=== PATIENT | female | born 1970 | race Hispanic/Latino ===

== ENCOUNTER 2018-01-15 09:42 | Inpatient (IN) | payer OTHER ==
[2018-01-15 10:41] LABS: Basophils % (Auto) 0.7 % (0.0-1.8); Eosinophils # (Auto) 0.3 K/mm3 (0.0-0.4); Eosinophils % (Auto) 4.9 % (0.0-4.3); Hematocrit 45.5 % (30.3-42.9); Hemoglobin 15.3 gm/dl (10.1-14.3); Lymphocytes # (Auto) 1.7 K/mm3 (1.2-5.4); Lymphocytes % (Auto) 27.8 % (13.4-35.0); Mean Corpuscular HGB Conc 34 % (30-34); Mean Corpuscular Hemoglobin 30 pg (28-32); Mean Corpuscular Volume 88 fl (79-97); Monocytes # (Auto) 0.7 K/mm3 (0.0-0.8); Monocytes % (Auto) 10.8 % (0.0-7.3); Platelet Count 268 K/mm3 (140-440); Red Blood Count 5.15 M/mm3 (3.65-5.03); Red Cell Distribution Width 18.2 % (13.2-15.2)
[2018-01-15 11:02] LABS: BUN/Creatinine Ratio 18; Blood Urea Nitrogen 9 mg/dL (7-17); Calcium 9.2 mg/dL (8.4-10.2); Hemolysis Index 7
[2018-01-15 11:04] LABS: Bacteria,Urine 1+ /HPF (Negative); Bilirubin,Urine NEG (Negative); Blood,Urine NEG (Negative); Color,Urine Straw (Yellow); Protein,Urine <15 mg/dL mg/dL (Negative); Urobilinogen,Urine < 2.0 mg/dL (<2.0); WBC,Urine < 1.0 /HPF (0.0-6.0)
[2018-01-15 11:14] LABS: Amphetamine Screen,Urine PRESUMPTIVE NEGATIVE; Benzodiazepines Screen,Urine PRESUMPTIVE NEGATIVE; Cannabinoid Screen,Urine PRESUMPTIVE NEGATIVE; Cocaine Screen,Urine PRESUMPTIVE NEGATIVE; Methadone Screen,Urine PRESUMPTIVE NEGATIVE; Opiate Screen,Urine PRESUMPTIVE NEGATIVE
--- NOTE | 2018-01-15 11:22 | Emergency Department Report ---
ED Psych HPI - General Chief Complaint: Alcohol Stated Complaint: DETOX Time Seen by Provider: 01/15/18 11:19 Source: patient Mode of arrival: Wheelchair - History of Present Illness Initial Comments: 47-year-old female brought in by her ex- for the detox. Patient states that she would like to be admitted to a detox program. She has been drinking heavily for 4 days. She consumes at least a 12 pack of beer and a fifth of liquor daily. She has been persistently drinking up to the point when her brought her to the hospital. The states that he has been at work for "3-4 days". 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 She states that she knows she had a grand mal seizure days ago. She did not hit her head or injure herself. She did not bite her tongue. She states that she has been previously on Dilantin. The patient had been admitted to the [facility] for detox and signed out AMA approximately one week ago. She has no specific complaints at this time. Initially the nurse requested that we execute a 1013. This was done on a temporary basis to prevent the patient leaving with an alcohol level of nearly 350. However upon speaking to the patient she is cooperative and voluntary for detox. The 1013 will be rescinded upon sobriety. Complaint: other (alcohol dependency) Associated Psychiatric Symptoms: none History of same: Yes Quality: constant Improves With: none Context: recent alcohol abuse Associated Symptoms: denies other symptoms Treatments Prior to Arrival: none If Self Harm: other (incapacitated by alcohol abuse) - Related Data Home Medications Medication Instructions Recorded Confirmed Last Taken No Known Home Medications [No 01/15/18 01/15/18 Unknown Reported Home Medications] Allergies Allergy/AdvReac Type Severity Reaction Status Date / Time Sulfa (Sulfonamide Allergy Rash Verified 01/15/18 11:52 Antibiotics) ED Review of Systems ROS: Stated complaint: DETOX Other details as noted in HPI Constitutional: denies: chills, fever Eyes: denies: eye pain, eye discharge, vision change ENT: denies: ear pain, throat pain Respiratory: denies: cough, shortness of breath, wheezing Cardiovascular: denies: chest pain, palpitations Endocrine: no symptoms reported Gastrointestinal: denies: abdominal pain, nausea, diarrhea Genitourinary: denies: urgency, dysuria, discharge Musculoskeletal: denies: back pain, joint swelling, arthralgia Skin: denies: rash, lesions Neurological: other (states a seizure 4 days ago). denies: headache, weakness, paresthesias Psychiatric: denies: anxiety, depression Hematological/Lymphatic: denies: easy bleeding, easy bruising ED Past Medical Hx - Past Medical History Hx Seizures: Yes - Surgical History Past Surgical History?: No - Social History Smoking Status: Current Every Day Smoker Substance Use Type: Alcohol - Medications Home Medications: Home Medications Medication Instructions Recorded Confirmed Last Taken Type No Known Home Medications [No 01/15/18 01/15/18 Unknown History Reported Home Medications] ED Physical Exam - General Limitations: No Limitations General appearance: alert, in no apparent distress - Head Head exam: Present: atraumatic, normocephalic - Eye Eye exam: Present: normal appearance. Absent: scleral icterus - ENT ENT exam: Present: mucous membranes moist - Neck Neck exam: Present: normal inspection. Absent: tenderness, meningismus - Respiratory Respiratory exam: Present: normal lung sounds bilaterally. Absent: respiratory distress - Cardiovascular Cardiovascular Exam: Present: regular rate, normal rhythm. Absent: systolic murmur, diastolic murmur, rubs, gallop - GI/Abdominal GI/Abdominal exam: Present: soft, normal bowel sounds. Absent: distended, tenderness, guarding, rebound, rigid - Extremities Exam Extremities exam: Present: normal inspection - Back Exam Back exam: Present: normal inspection - Neurological Exam Neurological exam: Present: alert, oriented X3, CN II-XII intact. Absent: motor sensory deficit - Psychiatric Psychiatric exam: Present: normal mood, flat affect - Skin Skin exam: Present: warm, dry, intact, normal color. Absent: rash ED Course Vital Signs 01/15/18 09:54 Temperature 98.1 F Pulse Rate 84 Blood Pressure 122/81 O2 Sat by Pulse 95 Oximetry - Reevaluation(s) Reevaluation #1: Patient was cooperative with me. She was seen by mental health counselor. She was also found not to have any 1013 criteria. Her 1013 is rescinded. She is admitted on a voluntary basis to the medical stabilization unit in stable condition by Dr. Garay. 01/15/18 15:23 01/15/18 15:24 ED Medical Decision Making - Lab Data Result diagrams: 01/15/18 10:27 01/15/18 10:27 Laboratory Results - last 24 hr 01/15/18 01/15/18 01/15/18 10:27 10:27 10:27 WBC RBC Hgb Hct MCV MCH MCHC RDW Plt Count Lymph % (Auto) [place] % (Auto) Eos % (Auto) Baso % (Auto) Lymph # [place] # Eos # Baso # Seg Neutrophils % Seg Neutrophils # Sodium 138 Potassium 3.9 Chloride 90.5 L Carbon Dioxide 23 Anion Gap 28 BUN 9 Creatinine 0.5 L Estimated GFR > 60 BUN/Creatinine Ratio 18 Glucose 93 Calcium 9.2 Urine Color Urine Turbidity Urine pH Ur Specific [place] Urine Protein Urine Glucose (UA) Urine Ketones Urine Blood Urine Nitrite Urine Bilirubin Urine Urobilinogen Ur Leukocyte Esterase Urine WBC (Auto) Urine RBC (Auto) U Epithel Cells (Auto) Urine Bacteria (Auto) Salicylates < 0.3 L Urine Opiates Screen Urine Methadone Screen Acetaminophen < 5.0 L Ur Barbiturates Screen Ur Phencyclidine Scrn Ur Amphetamines Screen U Benzodiazepines Scrn Urine Cocaine Screen U Marijuana (THC) Screen Drugs of Abuse Note Plasma/Serum Alcohol 01/15/18 01/15/18 01/15/18 10:27 10:27 10:39 WBC 6.2 RBC 5.15 H Hgb 15.3 H Hct 45.5 H MCV 88 MCH 30 MCHC 34 RDW 18.2 H Plt Count 268 Lymph % (Auto) 27.8 [place] % (Auto) 10.8 H Eos % (Auto) 4.9 H Baso % (Auto) 0.7 Lymph # 1.7 [place] # 0.7 Eos # 0.3 Baso # 0.0 Seg Neutrophils % 55.8 Seg Neutrophils # 3.5 Sodium Potassium Chloride Carbon Dioxide Anion Gap BUN Creatinine Estimated GFR BUN/Creatinine Ratio Glucose Calcium Urine Color Straw Urine Turbidity Clear Urine pH 6.0 Ur Specific [place] 1.004 Urine Protein <15 mg/dl Urine Glucose (UA) Neg Urine Ketones Neg Urine Blood Neg Urine Nitrite Neg Urine Bilirubin Neg Urine Urobilinogen < 2.0 Ur Leukocyte Esterase Neg Urine WBC (Auto) < 1.0 Urine RBC (Auto) 1.0 U Epithel Cells (Auto) 1.0 Urine Bacteria (Auto) 1+ Salicylates Urine Opiates Screen Urine Methadone Screen Acetaminophen Ur Barbiturates Screen Ur Phencyclidine Scrn Ur Amphetamines Screen U Benzodiazepines Scrn Urine Cocaine Screen U Marijuana (THC) Screen Drugs of Abuse Note Plasma/Serum Alcohol 0.36 H 01/15/18 10:39 WBC RBC Hgb Hct MCV MCH MCHC RDW Plt Count Lymph % (Auto) [place] % (Auto) Eos % (Auto) Baso % (Auto) Lymph # [place] # Eos # Baso # Seg Neutrophils % Seg Neutrophils # Sodium Potassium Chloride Carbon Dioxide Anion Gap BUN Creatinine Estimated GFR BUN/Creatinine Ratio Glucose Calcium Urine Color Urine Turbidity Urine pH Ur Specific [place] Urine Protein Urine Glucose (UA) Urine Ketones Urine Blood Urine Nitrite Urine Bilirubin Urine Urobilinogen Ur Leukocyte Esterase Urine WBC (Auto) Urine RBC (Auto) U Epithel Cells (Auto) Urine Bacteria (Auto) Salicylates Urine Opiates Screen Presumptive negative Urine Methadone Screen Presumptive negative Acetaminophen Ur Barbiturates Screen Presumptive negative Ur Phencyclidine Scrn Presumptive negative Ur Amphetamines Screen Presumptive negative U Benzodiazepines Scrn Presumptive negative Urine Cocaine Screen Presumptive negative U Marijuana (THC) Screen Presumptive negative Drugs of Abuse Note Disclamer Plasma/Serum Alcohol Critical care attestation.: If time is entered above; I have spent that time in minutes in the direct care of this critically ill patient, excluding procedure time. ED Disposition Clinical Impression: Alcohol abuse Alcohol dependency Qualifiers: Substance use status: unspecified alcohol-induced disorder Qualified Code(s): F10.29 - Alcohol dependence with unspecified alcohol-induced disorder Disposition: DC09 OP ADMIT IP TO THIS HOSP Is pt being admited?: Yes Does the pt Need Aspirin: No Condition: Stable Time of Disposition: 15:25
[2018-01-15] MEDS ORDERED: VITAMIN B-1 100 MG, FOLVITE 1 MG, INFUVITE 10 ML in NACL 0.9% 1000 ML 2,000 ML IV ONE (11:35)
[2018-01-15] MEDS ORDERED: VITAMIN B-1 100 MG, FOLVITE 1 MG, INFUVITE 10 ML in NACL 0.9% 1000 ML 1,000 ML IV ONE (11:36)
--- NOTE | 2018-01-15 11:40 | History and Physical Report ---
History of Present Illness Chief complaint: I feel sick, I keep having seizures History of present illness: 47 YO Female with Alcohol Dependence, Anxiety, PTSD presents to ED for evaluation. Pt states that she drinks alcohol every day that she can get it, and her last drink was this morning. Pt acknowledges 2 seizures this morning, as well as nausea, restlessness, anxiety, shaking, agitation,insomnia for the past 2 days, feeling confused, tremors. Pt seen and evaluated in ED and found to have Alcohol Withdrawl, complicated by seizures and delirium. Pt admitted to [facility] for medical stabilization for complicated Alcohol withdrawl. No reports of fever, chills, CP, Palpitations, Trauma, BRBPR, Unintentional weight loss, night sweats. Past History Past Medical History: other (PTSD, Anxiety) Past Surgical History: Social history: , lives with family, smoking, alcohol abuse Family history: no significant family history (reviewed) Medications and Allergies Allergies Allergy/AdvReac Type Severity Reaction Status Date / Time Sulfa (Sulfonamide Allergy Rash Verified 01/15/18 11:52 Antibiotics) Home Medications Medication Instructions Recorded Confirmed Last Taken Type No Known Home Medications [No 01/15/18 01/15/18 Unknown History Reported Home Medications] Active Meds: Active Medications Thiamine HCl 100 mg/ Folic Acid 1 mg/ Multivitamins/Minerals 10 ml/ Sodium Chloride 1,011.2 mls @ 250 mls/hr IV ONCE ONE Stop: 01/15/18 15:38 Thiamine HCl 100 mg/ Folic Acid 1 mg/ Multivitamins/Minerals 10 ml/ Sodium Chloride 2,011.2 mls @ 250 mls/hr IV ONCE ONE Stop: 01/15/18 19:37 Review of Systems Constitutional: weakness, malaise, poor appetite, no weight loss, no weight gain , no fever, no chills Ears, nose, mouth and throat: no ear pain, no ear discharge, no tinnitis, no decreased hearing, no nose pain, no nasal congestion Breasts: no change in shape, no swelling, no mass Cardiovascular: no chest pain, no orthopnea, no palpitations, no rapid/ irregular heart beat, no edema Respiratory: no cough, no cough with sputum, no excessive sputum, no hemoptysis Gastrointestinal: nausea, no vomiting, no diarrhea, no constipation, no BRBPR, no melena, no hematochezia Genitourinary Female: no pelvic pain, no flank pain, no menorrhagia, no dysuria , no urinary frequency, no urgency Rectal: no pain, no incontinence, no bleeding Musculoskeletal: no neck stiffness, no neck pain, no shooting arm pain, no arm numbness/tingling, no low back pain Integumentary: no rash, no pruritis, no redness, no sores, no wounds Neurological: weakness, no head injury, no transient paralysis, no paralysis Psychiatric: anxiety, sleep disturbances, insomnia, disorientation, anxiety attacks, irritability, mood swings Endocrine: no cold intolerance, no heat intolerance, no polyphagia, no excessive thirst, no polydipsia Hematologic/Lymphatic: no easy bruising, no easy bleeding, no lymphadenopathy, no lymphedema Allergic/Immunologic: no urticaria, no allergic rhinitis, no wheezing, no persistent infections, no anaphylaxis Exam - Constitutional Vitals: Temp Pulse Resp BP Pulse Ox 98.1 F 84 122/81 95 01/15/18 09:54 01/15/18 09:54 01/15/18 09:54 01/15/18 09:54 General appearance: Present: mild distress - EENT Eyes: Present: PERRL ENT: hearing intact, clear oral mucosa - Neck Neck: Present: supple, normal ROM - Respiratory Respiratory: bilateral: CTA - Cardiovascular Heart Sounds: Present: S1 & S2. Absent: rub, click - Extremities Extremities: pulses symmetrical, No edema Peripheral Pulses: within normal limits - Abdominal General gastrointestinal: Present: soft, non-tender, non-distended, normal bowel sounds Female genitourinary: Present: normal - Integumentary Integumentary: Present: clear, dry, clammy, decreased turgor - Musculoskeletal Musculoskeletal: generalized weakness - Psychiatric Psychiatric: appropriate mood/affect, intact judgment & insight, agitated - Neurologic Neurologic: CNII-XII intact, moves all extremities Results - Labs CBC & Chem 7: 01/15/18 10:27 01/15/18 10:27 Labs: Abnormal lab results 01/15/18 01/15/18 01/15/18 Range/Units 10:27 10:27 10:27 RBC (3.65-5.03) M/mm3 Hgb (10.1-14.3) gm/dl Hct (30.3-42.9) % RDW (13.2-15.2) % [place] % (Auto) (0.0-7.3) % Eos % (Auto) (0.0-4.3) % Chloride 90.5 L (98-107) mmol/L Creatinine 0.5 L (0.7-1.2) mg/dL Salicylates < 0.3 L (2.8-20.0) mg/dL Acetaminophen < 5.0 L (10.0-30.0) ug/mL Plasma/Serum Alcohol (0-0.07) % 01/15/18 01/15/18 Range/Units 10:27 10:27 RBC 5.15 H (3.65-5.03) M/mm3 Hgb 15.3 H (10.1-14.3) gm/dl Hct 45.5 H (30.3-42.9) % RDW 18.2 H (13.2-15.2) % [place] % (Auto) 10.8 H (0.0-7.3) % Eos % (Auto) 4.9 H (0.0-4.3) % Chloride (98-107) mmol/L Creatinine (0.7-1.2) mg/dL Salicylates (2.8-20.0) mg/dL Acetaminophen (10.0-30.0) ug/mL Plasma/Serum Alcohol 0.36 H (0-0.07) % Assessment and Plan - Patient Problems (1) Alcohol withdrawal Current Visit: Yes Status: Acute Qualifiers: Complication of substance-induced condition: with perceptual disturbance Qualified Code(s): F10.232 - Alcohol dependence with withdrawal with perceptual disturbance Plan to address problem: Alcohol withdrawl protocol: Admit to [facility], IV banana bag, Ativan taper, seizure precautions, monitor uop q shift, neuro checks, CIWA protocol, CT Head (2) Psychosis Current Visit: Yes Status: Acute Qualifiers: Schizophrenia type: disorganized schizophrenia Plan to address problem: psychiatry consulted, continue current medication. (3) Anxiety Current Visit: Yes Status: Acute Plan to address problem: Ativan prn, (4) Alcohol abuse Current Visit: Yes Status: Acute Plan to address problem: Banana bag, CIWA protocol, BAL, outpatient F/U with AA (5) DVT prophylaxis Current Visit: Yes Status: Acute Plan to address problem: scd to BLE while in bed.
--- NOTE | 2018-01-15 12:46 | Cat Scan Report ---
CT scan of head without IV contrast: History: Altered mental status. Findings: Ventricles are normal in size and midline in location. No evidence of acute ischemia, hemorrhage or mass. No extra-axial fluid collection. Normal brainstem cerebellum. Normal visualized sinuses and mastoid air cells. Impression: No acute intracranial abnormality.
[2018-01-15] MEDS ORDERED: BENTYL PO PRN (14:00)
[2018-01-15] MEDS ORDERED: PROVENTIL IH PRN (14:01)
[2018-01-15] MEDS ORDERED: SODIUM CHLORIDE FLUSH SYRINGE 10 ML IV PRN (14:01)
[2018-01-15] MEDS ORDERED: ZOFRAN IV PRN (14:01)
[2018-01-15] MEDS ORDERED: TYLENOL PO PRN (14:01)
[2018-01-15] MEDS ORDERED: VISTARIL PO PRN (14:03)
[2018-01-15] MEDS ORDERED: ATIVAN IV PRN (14:03)
[2018-01-15] MEDS ORDERED: ATIVAN IV ONE (14:29)
[2018-01-15] MEDS ORDERED: NACL 0.9% 1000 ML 1,000 ML IV SCH (15:00)
[2018-01-15] MEDS ORDERED: VISTARIL ONE (16:33)
[2018-01-15] MEDS ORDERED: NACL 0.9% 1000 ML 1,000 ML ONE (16:33)
[2018-01-15] MEDS: ATIVAN PO SCH ×2 (17:59→21:11)
[2018-01-15] MEDS: ROBAXIN PO PRN (18:52)
[2018-01-15] MEDS: PERCOCET 5/325 PO PRN (23:24)
[2018-01-15] MEDS: SODIUM CHLORIDE FLUSH SYRINGE 10 ML IV SCH (23:25)
[2018-01-16] MEDS: ATIVAN PO SCH ×4 (02:14→14:04)
[2018-01-16] MEDS: ROBAXIN PO PRN (05:24)
[2018-01-16] MEDS: PERCOCET 5/325 PO PRN ×2 (05:28→11:22)
[2018-01-16] MEDS: SODIUM CHLORIDE FLUSH SYRINGE 10 ML IV SCH (09:30)
--- NOTE | 2018-01-16 11:04 | Progress Note ---
Assessment and Plan Assessment and plan: Alcohol withdrawal Alcohol withdrawl protocol: Admit to [facility], IV banana bag, Ativan taper, seizure precautions, monitor uop q shift, neuro checks, CIWA protocol, CT Head Psychosis psychiatry following, continue current medication. Anxiety Ativan prn, Alcohol abuse Banana bag, CIWA protocol, BAL, outpatient F/U with AA DVT prophylaxis scd to BLE while in bed. History Interval history: No new issues Hospitalist Physical - Constitutional Vitals: Temp Pulse Resp BP Pulse Ox 98.7 F 80 20 128/72 98 01/16/18 02:09 01/16/18 02:09 01/16/18 09:00 01/16/18 02:09 01/16/18 09:45 General appearance: Present: no acute distress - EENT Eyes: Present: PERRL, EOM intact ENT: hearing intact, clear oral mucosa, dentition normal - Neck Neck: Present: supple, normal ROM - Respiratory Respiratory effort: normal Respiratory: bilateral: CTA - Cardiovascular Rhythm: regular Heart Sounds: Present: S1 & S2. Absent: gallop, rub - Extremities Extremities: no ischemia, No edema, Full ROM - Abdominal General gastrointestinal: soft, non-tender, non-distended, normal bowel sounds - Integumentary Integumentary: Present: clear, warm, dry - Neurologic Neurologic: CNII-XII intact, moves all extremities Results - Labs CBC & Chem 7: 01/15/18 10:27 01/15/18 10:27 Labs: Laboratory Last Values WBC 6.2 K/mm3 (4.5-11.0) 01/15/18 10:27 RBC 5.15 M/mm3 (3.65-5.03) H 01/15/18 10:27 Hgb 15.3 gm/dl (10.1-14.3) H 01/15/18 10:27 Hct 45.5 % (30.3-42.9) H 01/15/18 10:27 MCV 88 fl (79-97) 01/15/18 10:27 MCH 30 pg (28-32) 01/15/18 10:27 MCHC 34 % (30-34) 01/15/18 10:27 RDW 18.2 % (13.2-15.2) H 01/15/18 10:27 Plt Count 268 K/mm3 (140-440) 01/15/18 10:27 Lymph % (Auto) 27.8 % (13.4-35.0) 01/15/18 10:27 [place] % (Auto) 10.8 % (0.0-7.3) H 01/15/18 10:27 Eos % (Auto) 4.9 % (0.0-4.3) H 01/15/18 10:27 Baso % (Auto) 0.7 % (0.0-1.8) 01/15/18 10:27 Lymph # 1.7 K/mm3 (1.2-5.4) 01/15/18 10:27 [place] # 0.7 K/mm3 (0.0-0.8) 01/15/18 10:27 Eos # 0.3 K/mm3 (0.0-0.4) 01/15/18 10:27 Baso # 0.0 K/mm3 (0.0-0.1) 01/15/18 10:27 Seg Neutrophils % 55.8 % (40.0-70.0) 01/15/18 10:27 Seg Neutrophils # 3.5 K/mm3 (1.8-7.7) 01/15/18 10:27 Sodium 138 mmol/L (137-145) 01/15/18 10:27 Potassium 3.9 mmol/L (3.6-5.0) 01/15/18 10:27 Chloride 90.5 mmol/L (98-107) L 01/15/18 10:27 Carbon Dioxide 23 mmol/L (22-30) 01/15/18 10:27 Anion Gap 28 mmol/L 01/15/18 10:27 BUN 9 mg/dL (7-17) 01/15/18 10:27 Creatinine 0.5 mg/dL (0.7-1.2) L 01/15/18 10:27 Estimated GFR > 60 ml/min 01/15/18 10:27 BUN/Creatinine Ratio 18 % 01/15/18 10:27 Glucose 93 mg/dL (65-100) 01/15/18 10:27 Calcium 9.2 mg/dL (8.4-10.2) 01/15/18 10:27 Urine Color Straw (Yellow) 01/15/18 10:39 Urine Turbidity Clear (Clear) 01/15/18 10:39 Urine pH 6.0 (5.0-7.0) 01/15/18 10:39 Ur Specific [place] 1.004 (1.003-1.030) 01/15/18 10:39 Urine Protein <15 mg/dl mg/dL (Negative) 01/15/18 10:39 Urine Glucose (UA) Neg mg/dL (Negative) 01/15/18 10:39 Urine Ketones Neg mg/dL (Negative) 01/15/18 10:39 Urine Blood Neg (Negative) 01/15/18 10:39 Urine Nitrite Neg (Negative) 01/15/18 10:39 Urine Bilirubin Neg (Negative) 01/15/18 10:39 Urine Urobilinogen < 2.0 mg/dL (<2.0) 01/15/18 10:39 Ur Leukocyte Esterase Neg (Negative) 01/15/18 10:39 Urine WBC (Auto) < 1.0 /HPF (0.0-6.0) 01/15/18 10:39 Urine RBC (Auto) 1.0 /HPF (0.0-6.0) 01/15/18 10:39 U Epithel Cells (Auto) 1.0 /HPF (0-13.0) 01/15/18 10:39 Urine Bacteria (Auto) 1+ /HPF (Negative) 01/15/18 10:39 Salicylates < 0.3 mg/dL (2.8-20.0) L 01/15/18 10:27 Urine Opiates Screen Presumptive negative 01/15/18 10:39 Urine Methadone Screen Presumptive negative 01/15/18 10:39 Acetaminophen < 5.0 ug/mL (10.0-30.0) L 01/15/18 10:27 Ur Barbiturates Screen Presumptive negative 01/15/18 10:39 Ur Phencyclidine Scrn Presumptive negative 01/15/18 10:39 Ur Amphetamines Screen Presumptive negative 01/15/18 10:39 U Benzodiazepines Scrn Presumptive negative 01/15/18 10:39 Urine Cocaine Screen Presumptive negative 01/15/18 10:39 U Marijuana (THC) Screen Presumptive negative 01/15/18 10:39 Drugs of Abuse Note Disclamer 01/15/18 10:39 Plasma/Serum Alcohol 0.36 % (0-0.07) H 01/15/18 10:27
[2018-01-16 17:34] VITALS: BP 118/80
[2018-01-17] MEDS ORDERED: HABITROL TD SCH (10:00)
== END 2018-01-16 15:55 | disposition left against medical advice (07) | DRG 894 ==
LOC: ED 09:42 → 3A 14:01 → MSU 18:56 → 2B-ACE 19:35
PROVIDERS: ADMIT Internal Medicine; ATTEND Hospitalist
DX: F10.231 Alcohol dependence with withdrawal delirium (principal); R56.9 Unspecified convulsions; F41.9 Anxiety disorder, unspecified; F43.10 Post-traumatic stress disorder, unspecified; Z88.2 Allergy status to sulfonamides; F17.200 Nicotine dependence, unspecified, uncomplicated; F29 Unspecified psychosis not due to a substance or known physiological condition; Z53.21 Procedure and treatment not carried out due to patient leaving prior to being seen by health care provider
CPT/HCPCS: 36415; 70450; 80048; 80307; 80320; 81001; 85025; 96365; 96366; 96375; G0480; J2060; J2405; J3411; J7030; Q0177

== ENCOUNTER 2018-01-21 19:04 | Inpatient (IN) | payer OTHER ==
[2018-01-21 19:52] LABS: Basophils # (Auto) 0.1 K/mm3 (0.0-0.1); Eosinophils # (Auto) 0.2 K/mm3 (0.0-0.4); Eosinophils % (Auto) 2.9 % (0.0-4.3); Hematocrit 46.5 % (30.3-42.9); Hemoglobin 15.5 gm/dl (10.1-14.3); Lymphocytes # (Auto) 1.6 K/mm3 (1.2-5.4); Lymphocytes % (Auto) 27.3 % (13.4-35.0); Mean Corpuscular HGB Conc 33 % (30-34); Mean Corpuscular Hemoglobin 29 pg (28-32); Mean Corpuscular Volume 87 fl (79-97); Monocytes # (Auto) 0.5 K/mm3 (0.0-0.8); Monocytes % (Auto) 9.5 % (0.0-7.3); Red Blood Count 5.32 M/mm3 (3.65-5.03); Red Cell Distribution Width 17.9 % (13.2-15.2)
[2018-01-21 20:24] LABS: BUN/Creatinine Ratio 18; Blood Urea Nitrogen 9 mg/dL (7-17); Calcium 9.1 mg/dL (8.4-10.2); Hemolysis Index 6
[2018-01-21 20:46] LABS: Platelet Count 98 K/mm3 (140-440)
[2018-01-21] MEDS ORDERED: HABITROL TD ONE (21:18)
[2018-01-21] MEDS ORDERED: ATIVAN IV PRN ×2 (21:18)
[2018-01-21] MEDS ORDERED: VITAMIN B-1 100 MG, FOLVITE 1 MG, INFUVITE 10 ML in NACL 0.9% 1000 ML 1,000 ML IV ONE (21:21)
--- NOTE | 2018-01-21 21:24 | Emergency Department Report ---
HPI - General Chief Complaint: Alcohol Time Seen by Provider: 01/21/18 21:08 - HPI HPI: 47-year-old female presents to the emergency department, brought in by her , with complaint of alcohol abuse and dependence and wanting detox. The patient was here 5 days ago, last Wednesday, and was admitted to the hospital for medical stabilization and hope for detox/rehabilitation. However at the time the patient had left AGAINST MEDICAL ADVICE. Patient says "I should not have done that" and is hoping to get some help. She says that she feels anxious. She drinks about one fifth of hard liquor and 12 beers a day. She last had alcohol this morning. She is a tobacco smoker. Denies any illicit drug use. She denies any other past medical history. She says that she get some primary care through the [facility]. ED Past Medical Hx - Past Medical History Hx Hypertension: Yes Hx Congestive Heart Failure: No Hx Diabetes: No Hx Seizures: Yes Hx Asthma: No Hx COPD: No - Surgical History Hx Cholecystectomy: No Hx Appendectomy: No - Social History Smoking Status: Current Every Day Smoker Substance Use Type: None - Medications Home Medications: Home Medications Medication Instructions Recorded Confirmed Last Taken Type No Known Home Medications [No 01/15/18 01/22/18 Unknown History Reported Home Medications] ED Review of Systems ROS: Stated complaint: DETOX Other details as noted in HPI Comment: All other systems reviewed and negative Constitutional: denies: chills, fever Eyes: denies: eye pain, eye discharge, vision change ENT: denies: ear pain, throat pain Respiratory: denies: cough, shortness of breath, wheezing Cardiovascular: denies: chest pain, palpitations Gastrointestinal: denies: abdominal pain, nausea, diarrhea Genitourinary: denies: urgency, dysuria, discharge Musculoskeletal: denies: back pain, joint swelling, arthralgia Skin: denies: rash, lesions Neurological: denies: headache, weakness, paresthesias Psychiatric: anxiety. denies: homicidal thoughts, suicidal thoughts Physical Exam - Physical Exam Vital Signs: Vital Signs 01/21/18 19:14 Temperature 98.6 F Pulse Rate 108 H Respiratory 18 Rate Blood Pressure 147/103 O2 Sat by Pulse 96 Oximetry Physical Exam: GENERAL: The patient is well-developed well-nourished. HENT: Normocephalic. Atraumatic. Patient has moist mucous membranes. EYES: Extraocular motions are intact. Pupils equal reactive to light bilaterally. NECK: Supple. Trachea is midline. CHEST/LUNGS: Clear to auscultation. There is no respiratory distress noted. HEART/CARDIOVASCULAR: Regular. There is mild tachycardia. There is no murmur. ABDOMEN: Abdomen is soft, nontender. Patient has normal bowel sounds. There is no abdominal distention. SKIN: Skin is warm and dry. NEURO: The patient is awake, alert, and oriented but does appear slightly intoxicated. The patient is cooperative. Normal speech. She has a mild bilateral distal upper extremity tremor. MUSCULOSKELETAL: There is no tenderness or deformity. There is no limitation range of motion. There is no evidence of acute injury. ED Course Vital Signs 01/21/18 19:14 Temperature 98.6 F Pulse Rate 108 H Respiratory 18 Rate Blood Pressure 147/103 O2 Sat by Pulse 96 Oximetry ED Medical Decision Making - Lab Data Result diagrams: 01/21/18 19:34 01/21/18 19:34 - Medical Decision Making Patient presents requesting help for alcohol detox and/or rehabilitation. She has continued to drink since she left [facility] AGAINST MEDICAL ADVICE for similar presentation. Blood alcohol level is 0.34. Despite this high level of alcohol, the patient is awake and alert and is cognizant. Rest of her labs are mostly unremarkable. Vital signs stable throughout her ED course including being afebrile. As the patient has been in the emergency department and has started to detox, she has started to show some withdrawal-type symptoms. She is placed on the [facility] withdrawal protocol and has received a total of 6 mg of Ativan thus far throughout the evening. She will be admitted to the hospital and the hospitalist service where she'll be medically stabilized and then they can look into possible detox and/or rehabilitation. She was accepted for admission by the hospitalist, Dr. Thornton - Differential Diagnosis alcohol intoxication, polysubstance abuse, withdrawal Critical Care Time: No Critical care attestation.: If time is entered above; I have spent that time in minutes in the direct care of this critically ill patient, excluding procedure time. ED Disposition Clinical Impression: Alcohol abuse Alcohol withdrawal Qualifiers: Complication of substance-induced condition: uncomplicated Qualified Code(s): F10.230 - Alcohol dependence with withdrawal, uncomplicated Alcohol dependency Qualifiers: Substance use status: in withdrawal Complication of substance-induced condition : uncomplicated Qualified Code(s): F10.230 - Alcohol dependence with withdrawal , uncomplicated Disposition: DC-09 OP ADMIT IP TO THIS HOSP Is pt being admited?: Yes Condition: Fair Referrals: PRIMARY CARE, [Primary Care Provider] - 3-5 Days Time of Disposition: 06:42
[2018-01-21] MEDS: ATIVAN IV PRN ×2 (22:24→23:32)
[2018-01-22] MEDS: ATIVAN IV PRN ×6 (02:29→21:50)
[2018-01-22] MEDS ORDERED: MOTRIN PO ONE (05:23)
[2018-01-22 07:16] LABS: Bilirubin,Urine NEG (Negative); Blood,Urine NEG (Negative); Color,Urine Yellow (Yellow); Mucus,Urine FEW /HPF; Urobilinogen,Urine < 2.0 mg/dL (<2.0)
[2018-01-22 07:24] LABS: Amphetamine Screen,Urine PRESUMPTIVE NEGATIVE; Benzodiazepines Screen,Urine PRESUMPTIVE NEGATIVE; Cannabinoid Screen,Urine PRESUMPTIVE NEGATIVE; Cocaine Screen,Urine PRESUMPTIVE NEGATIVE; Methadone Screen,Urine PRESUMPTIVE NEGATIVE; Opiate Screen,Urine PRESUMPTIVE NEGATIVE
--- NOTE | 2018-01-22 08:00 | History and Physical Report ---
History of Present Illness Date of examination: 01/22/18 Date of admission: 01/22/18 Medications and Allergies Allergies Allergy/AdvReac Type Severity Reaction Status Date / Time Sulfa (Sulfonamide Allergy Rash Verified 01/15/18 11:52 Antibiotics) Home Medications Medication Instructions Recorded Confirmed Last Taken Type No Known Home Medications [No 01/15/18 01/22/18 Unknown History Reported Home Medications] Active Meds: Active Medications Lorazepam (Ativan) 2 mg IV Q1HR PRN PRN Reason: CIWA-Ar 8-15 Last Admin: 01/22/18 05:40 Dose: 2 mg Lorazepam (Ativan) 4 mg IV Q1HR PRN PRN Reason: CIWA-Ar 16-25 Last Admin: 01/22/18 00:25 Dose: 4 mg Lorazepam (Ativan) 4 mg IV Q15MIN PRN PRN Reason: CIWA-Ar >25 Exam - Constitutional Vitals: Temp Pulse Resp BP Pulse Ox 98.8 F 100 H 26 H 119/83 95 01/21/18 21:21 01/22/18 07:00 01/22/18 07:00 01/22/18 07:00 01/22/18 07:00 Results - Labs CBC & Chem 7: 01/21/18 19:34 01/21/18 19:34 Labs: Abnormal lab results 01/21/18 01/21/18 01/21/18 Range/Units 19:34 19:34 19:34 RBC (3.65-5.03) M/mm3 Hgb (10.1-14.3) gm/dl Hct (30.3-42.9) % RDW (13.2-15.2) % Plt Count (140-440) K/mm3 [place] % (Auto) (0.0-7.3) % Chloride 96.0 L (98-107) mmol/L Creatinine 0.5 L (0.7-1.2) mg/dL Glucose 121 H (65-100) mg/dL Salicylates < 0.3 L (2.8-20.0) mg/dL Acetaminophen < 5.0 L (10.0-30.0) ug/mL Plasma/Serum Alcohol (0-0.07) % 01/21/18 01/21/18 Range/Units 19:34 19:34 RBC 5.32 H (3.65-5.03) M/mm3 Hgb 15.5 H (10.1-14.3) gm/dl Hct 46.5 H (30.3-42.9) % RDW 17.9 H (13.2-15.2) % Plt Count 98 L (140-440) K/mm3 [place] % (Auto) 9.5 H (0.0-7.3) % Chloride (98-107) mmol/L Creatinine (0.7-1.2) mg/dL Glucose (65-100) mg/dL Salicylates (2.8-20.0) mg/dL Acetaminophen (10.0-30.0) ug/mL Plasma/Serum Alcohol 0.34 H (0-0.07) %
[2018-01-22] MEDS ORDERED: VITAMIN B-1 PO ONE (08:01)
[2018-01-22] MEDS ORDERED: ATIVAN IV PRN (08:04)
[2018-01-22] MEDS ORDERED: NACL 0.9% 1000 ML 1,000 ML IV SCH (09:00)
[2018-01-22] MEDS: FOLVITE PO SCH (12:14)
[2018-01-22] MEDS: LOVENOX SUB-Q SCH (12:14)
[2018-01-22] MEDS ORDERED: ZOFRAN IV PRN (14:26)
[2018-01-22] MEDS ORDERED: SODIUM CHLORIDE FLUSH SYRINGE 10 ML IV PRN (14:26)
[2018-01-22] MEDS ORDERED: BENTYL PO PRN (14:27)
[2018-01-22] MEDS ORDERED: ROBAXIN PO PRN (14:27)
[2018-01-22] MEDS ORDERED: VISTARIL PO PRN (14:27)
--- NOTE | 2018-01-22 14:30 | History and Physical Report ---
History of Present Illness Date of admission: 01/22/18 07:56 Chief complaint: Im feeling sick again. I was drinking. History of present illness: 47 YO Female with Alcohol Dependence, Anxiety, PTSD presents to ED for evaluation. Pt states that she drinks alcohol every day that she can get it, and her last drink was this morning. Pt acknowledges drinking again since her last [facility] on [facility]. Pt acknowledges headache, nausea, restlessness, anxiety, tremors, agitation,insomnia for the past 4 days, feeling confused, as well and auditory and visual hallucinations. Pt seen and evaluated in ED and found to have Alcohol Withdrawl, complicated by delirium. Pt admitted to [facility] for medical stabilization for complicated Alcohol withdrawl. No reports of fever, chills, CP, Palpitations, Trauma, BRBPR, Unintentional weight loss, skin rash, night sweats, or recent ill contacts. Past History Past Medical History: other (PTSD, Anxiety, ) Past Surgical History: Social history: , alcohol abuse Family history: no significant family history (reviewed) Medications and Allergies Allergies Allergy/AdvReac Type Severity Reaction Status Date / Time Sulfa (Sulfonamide Allergy Rash Verified 01/15/18 11:52 Antibiotics) Home Medications Medication Instructions Recorded Confirmed Last Taken Type No Known Home Medications [No 01/15/18 01/22/18 Unknown History Reported Home Medications] Active Meds: Active Medications Chlordiazepoxide HCl (Librium) 50 mg PO Q6HR CARLOS Stop: 01/23/18 12:01 Dicyclomine HCl (Bentyl) 20 mg PO Q6H PRN PRN Reason: Abdominal Discomfort Enoxaparin Sodium (Lovenox) 40 mg SUB-Q QDAY CARLOS Last Admin: 01/22/18 12:14 Dose: 40 mg Folic Acid (Folvite) 1 mg PO QDAY CARLOS Last Admin: 01/22/18 12:14 Dose: 1 mg Hydroxyzine Pamoate (Vistaril) 50 mg PO Q6H PRN PRN Reason: Anxiety Mild Sodium Chloride (Nacl 0.9% 1000 Ml) 1,000 mls @ 100 mls/hr IV DIRECT CARLOS Lorazepam (Ativan) 2 mg IV Q1HR PRN PRN Reason: CIWA-Ar 8-15 Last Admin: 01/22/18 12:18 Dose: 2 mg Lorazepam (Ativan) 4 mg IV Q1HR PRN PRN Reason: CIWA-Ar 16-25 Last Admin: 01/22/18 00:25 Dose: 4 mg Lorazepam (Ativan) 4 mg IV Q15MIN PRN PRN Reason: CIWA-Ar >25 Lorazepam (Ativan) 1 mg IV Q4H PRN PRN Reason: Agitation Methocarbamol (Robaxin) 750 mg PO Q6H PRN PRN Reason: Muscle Ache Ondansetron HCl (Zofran) 4 mg IV Q8H PRN PRN Reason: Nausea And Vomiting Sodium Chloride (Sodium Chloride Flush Syringe 10 Ml) 10 ml IV BID CARLOS Sodium Chloride (Sodium Chloride Flush Syringe 10 Ml) 10 ml IV PRN PRN PRN Reason: LINE FLUSH Review of Systems Constitutional: no weight loss, no weight gain, no fever, no chills Ears, nose, mouth and throat: no ear pain, no ear discharge, no tinnitis, no decreased hearing, no nose pain, no nasal congestion Breasts: no change in shape, no swelling, no mass Cardiovascular: no chest pain, no orthopnea, no palpitations, no rapid/ irregular heart beat Respiratory: no cough, no cough with sputum, no excessive sputum, no hemoptysis , no shortness of breath Gastrointestinal: nausea, change in bowel habits, loss of appetite, no BRBPR, no melena, no hematochezia, no early satiety, no heartburn, no indigestion Genitourinary Female: no pelvic pain, no flank pain, no menorrhagia, no dysuria , no urinary frequency, no urgency Rectal: no pain, no incontinence, no bleeding Musculoskeletal: no neck stiffness, no neck pain, no shooting arm pain, no arm numbness/tingling, no low back pain, no shooting leg pain, no leg numbness/ tingling Integumentary: no rash, no pruritis, no redness, no sores, no wounds, no jaundice Neurological: weakness, tremors, ataxia, headaches, confusion, no head injury, no transient paralysis, no paralysis Psychiatric: anxiety, insomnia, change in appetite, disorientation, hallucinations, paranoia, depression, hopelessness, anxiety attacks, difficulties concentrating, confusion, irritability, sadness/tearfullness Endocrine: no cold intolerance, no heat intolerance, no polyphagia, no excessive thirst, no polydipsia, no polyuria, no nocturia, no flushing Hematologic/Lymphatic: no easy bruising, no easy bleeding, no lymphadenopathy, no lymphedema Allergic/Immunologic: no urticaria, no allergic rhinitis, no wheezing, no persistent infections, no anaphylaxis, no angioedema Exam - Constitutional Vitals: Temp Pulse Resp BP Pulse Ox 98.8 F 100 H 26 H 119/83 95 01/21/18 21:21 01/22/18 07:00 01/22/18 07:00 01/22/18 07:00 01/22/18 07:00 General appearance: Present: mild distress, disheveled - EENT Eyes: Present: PERRL ENT: hearing intact, clear oral mucosa - Neck Neck: Present: supple, normal ROM - Respiratory Respiratory effort: normal Respiratory: bilateral: CTA - Cardiovascular Heart Sounds: Present: S1 & S2. Absent: rub, click - Extremities Extremities: pulses symmetrical, No edema Peripheral Pulses: within normal limits - Abdominal General gastrointestinal: Present: soft, non-tender, non-distended, normal bowel sounds Female genitourinary: Present: normal - Integumentary Integumentary: Present: clear, dry, clammy, decreased turgor - Musculoskeletal Musculoskeletal: generalized weakness - Psychiatric Psychiatric: agitated - Neurologic Neurologic: CNII-XII intact, moves all extremities Results - Labs CBC & Chem 7: 01/21/18 19:34 01/21/18 19:34 Labs: Abnormal lab results 01/21/18 01/21/18 01/21/18 Range/Units 19:34 19:34 19:34 RBC (3.65-5.03) M/mm3 Hgb (10.1-14.3) gm/dl Hct (30.3-42.9) % RDW (13.2-15.2) % Plt Count (140-440) K/mm3 [place] % (Auto) (0.0-7.3) % Chloride 96.0 L (98-107) mmol/L Creatinine 0.5 L (0.7-1.2) mg/dL Glucose 121 H (65-100) mg/dL Salicylates < 0.3 L (2.8-20.0) mg/dL Acetaminophen < 5.0 L (10.0-30.0) ug/mL Plasma/Serum Alcohol (0-0.07) % 01/21/18 01/21/18 Range/Units 19:34 19:34 RBC 5.32 H (3.65-5.03) M/mm3 Hgb 15.5 H (10.1-14.3) gm/dl Hct 46.5 H (30.3-42.9) % RDW 17.9 H (13.2-15.2) % Plt Count 98 L (140-440) K/mm3 [place] % (Auto) 9.5 H (0.0-7.3) % Chloride (98-107) mmol/L Creatinine (0.7-1.2) mg/dL Glucose (65-100) mg/dL Salicylates (2.8-20.0) mg/dL Acetaminophen (10.0-30.0) ug/mL Plasma/Serum Alcohol 0.34 H (0-0.07) % Assessment and Plan - Patient Problems (1) Alcohol withdrawal Current Visit: Yes Status: Acute Qualifiers: Complication of substance-induced condition: uncomplicated Qualified Code(s ): F10.230 - Alcohol dependence with withdrawal, uncomplicated Plan to address problem: Librium taper, Thiamine folic acid, multivitamin, IVF resuscitation therapy as tolerated, encourage oral intake as tolerated, (2) Psychosis Current Visit: No Status: Acute Qualifiers: Schizophrenia type: disorganized schizophrenia Plan to address problem: resume prehospital therapy, (3) DVT prophylaxis Current Visit: Yes Status: Acute Plan to address problem: SCD to BLE while in bed.
[2018-01-22] MEDS: LIBRIUM PO SCH ×2 (18:18→22:57)
[2018-01-22] MEDS ORDERED: SODIUM CHLORIDE FLUSH SYRINGE 10 ML IV SCH (22:00)
[2018-01-23] MEDS: ATIVAN IV PRN ×2 (00:53→09:28)
[2018-01-23] MEDS: PERCOCET 5/325 PO PRN ×2 (00:58→09:19)
[2018-01-23] MEDS: LIBRIUM PO SCH ×2 (04:32→09:19)
[2018-01-23 08:39] VITALS: BP 130/87
[2018-01-23] MEDS: LOVENOX SUB-Q SCH (09:18)
[2018-01-23] MEDS: FOLVITE PO SCH (09:19)
--- NOTE | 2018-01-23 09:26 | Progress Note ---
Assessment and Plan Assessment and plan: --Alcohol withdrawal; Continue [facility] protocol, thiamine and folic acid Supportive care --Mild psychosis; probably secondary to alcohol intoxication Closely monitor, psych evaluation if needed --Chronic alcohol use; counseling done Strongly advised to quit alcohol intake, advised to seek rehabilitation --Ongoing tobacco use; Smoking cessation counseling done advised nicotine patch as needed --DVT prophylaxis; Lovenox Closely monitor the patient and adjust management as needed Plan of care is reviewed with the patient her at the bedside and her nurse Verbalized understanding History Interval history: Patient seen and examined this morning medical records reviewed Attempt with alcohol intoxication, for alcohol rehabilitation program On CINV protocol Patient wants to leave the hospital AGAINST MEDICAL ADVICE is at the bedside I addressed in detail, her questions and concerns, She reports that she is not getting her pain medications Wants to go home. Patient is alert and awake, agitated and tremulous Vital signs reviewed Hospitalist Physical - Constitutional Vitals: Temp Pulse Resp BP Pulse Ox 97.9 F 83 20 130/87 95 01/23/18 08:38 01/23/18 08:38 01/23/18 08:38 01/23/18 08:38 01/23/18 08:38 General appearance: Present: mild distress, disheveled, other (tremulousness) - EENT Eyes: Present: PERRL, EOM intact - Neck Neck: Present: supple, normal ROM - Respiratory Respiratory effort: normal Respiratory: negative: rales, rhonchi, wheezing - Cardiovascular Rhythm: regular Heart Sounds: Present: S1 & S2 - Extremities Extremities: no ischemia, No edema - Abdominal General gastrointestinal: soft, non-tender, non-distended, normal bowel sounds - Integumentary Integumentary: Present: clear, warm - Psychiatric Psychiatric: appropriate mood/affect, agitated - Neurologic Neurologic: moves all extremities Results - Labs CBC & Chem 7: 01/21/18 19:34 01/21/18 19:34 Labs: Laboratory Last Values WBC 5.7 K/mm3 (4.5-11.0) 01/21/18 19:34 RBC 5.32 M/mm3 (3.65-5.03) H 01/21/18 19:34 Hgb 15.5 gm/dl (10.1-14.3) H 01/21/18 19:34 Hct 46.5 % (30.3-42.9) H 01/21/18 19:34 MCV 87 fl (79-97) 01/21/18 19:34 MCH 29 pg (28-32) 01/21/18 19:34 MCHC 33 % (30-34) 01/21/18 19:34 RDW 17.9 % (13.2-15.2) H 01/21/18 19:34 Plt Count 98 K/mm3 (140-440) L 01/21/18 19:34 Lymph % (Auto) 27.3 % (13.4-35.0) 01/21/18 19:34 [place] % (Auto) 9.5 % (0.0-7.3) H 01/21/18 19:34 Eos % (Auto) 2.9 % (0.0-4.3) 01/21/18 19:34 Baso % (Auto) 1.0 % (0.0-1.8) 01/21/18 19:34 Lymph # 1.6 K/mm3 (1.2-5.4) 01/21/18 19:34 [place] # 0.5 K/mm3 (0.0-0.8) 01/21/18 19:34 Eos # 0.2 K/mm3 (0.0-0.4) 01/21/18 19:34 Baso # 0.1 K/mm3 (0.0-0.1) 01/21/18 19:34 Seg Neutrophils % 59.3 % (40.0-70.0) 01/21/18 19:34 Seg Neutrophils # 3.4 K/mm3 (1.8-7.7) 01/21/18 19:34 Sodium 138 mmol/L (137-145) 01/21/18 19:34 Potassium 4.0 mmol/L (3.6-5.0) 01/21/18 19:34 Chloride 96.0 mmol/L (98-107) L 01/21/18 19:34 Carbon Dioxide 23 mmol/L (22-30) 01/21/18 19:34 Anion Gap 23 mmol/L 01/21/18 19:34 BUN 9 mg/dL (7-17) 01/21/18 19:34 Creatinine 0.5 mg/dL (0.7-1.2) L 01/21/18 19:34 Estimated GFR > 60 ml/min 01/21/18 19:34 BUN/Creatinine Ratio 18 % 01/21/18 19:34 Glucose 121 mg/dL (65-100) H 01/21/18 19:34 Calcium 9.1 mg/dL (8.4-10.2) 01/21/18 19:34 HCG, Qual Negative (Negative) 01/21/18 19:34 Urine Color Yellow (Yellow) 01/22/18 06:54 Urine Turbidity Clear (Clear) 01/22/18 06:54 Urine pH 6.0 (5.0-7.0) 01/22/18 06:54 Ur Specific [place] 1.016 (1.003-1.030) 01/22/18 06:54 Urine Protein 100 mg/dl mg/dL (Negative) 01/22/18 06:54 Urine Glucose (UA) Neg mg/dL (Negative) 01/22/18 06:54 Urine Ketones Neg mg/dL (Negative) 01/22/18 06:54 Urine Blood Neg (Negative) 01/22/18 06:54 Urine Nitrite Neg (Negative) 01/22/18 06:54 Urine Bilirubin Neg (Negative) 01/22/18 06:54 Urine Urobilinogen < 2.0 mg/dL (<2.0) 01/22/18 06:54 Ur Leukocyte Esterase Neg (Negative) 01/22/18 06:54 Urine WBC (Auto) 1.0 /HPF (0.0-6.0) 01/22/18 06:54 Urine RBC (Auto) 2.0 /HPF (0.0-6.0) 01/22/18 06:54 U Epithel Cells (Auto) < 1.0 /HPF (0-13.0) 01/22/18 06:54 Urine Mucus Few /HPF 01/22/18 06:54 Salicylates < 0.3 mg/dL (2.8-20.0) L 01/21/18 19:34 Urine Opiates Screen Presumptive negative 01/22/18 06:54 Urine Methadone Screen Presumptive negative 01/22/18 06:54 Acetaminophen < 5.0 ug/mL (10.0-30.0) L 01/21/18 19:34 Ur Barbiturates Screen Presumptive negative 01/22/18 06:54 Ur Phencyclidine Scrn Presumptive negative 01/22/18 06:54 Ur Amphetamines Screen Presumptive negative 01/22/18 06:54 U Benzodiazepines Scrn Presumptive negative 01/22/18 06:54 Urine Cocaine Screen Presumptive negative 01/22/18 06:54 U Marijuana (THC) Screen Presumptive negative 01/22/18 06:54 Drugs of Abuse Note Disclamer 01/22/18 06:54 Plasma/Serum Alcohol 0.34 % (0-0.07) H 01/21/18 19:34
--- NOTE | 2018-01-23 15:53 | Discharge Summary ---
Providers - Providers Date of Admission: 01/22/18 07:56 Date of discharge: 01/23/18 Attending physician: YELENA MALDONADO Primary care physician: GYM SUPERVISOR Hospitalization Reason for admission: Alcohol withdrawal Condition: Fair Hospital course: Very pleasant obese 47-year-old female patient with significant past medical history of chronic alcohol and tobacco use, Was admitted through emergency room with alcohol intoxication patient was last discharged from a [facility] on 01/21/2018 and started drinking again complains of headache nausea and restlessness. Patient was admitted to [facility] treatment was started per protocol Counseling done patient strongly advised to quit alcohol intake, smoking cessation However this morning patient was upset and wanted to leave the hospital AGAINST MEDICAL ADVICE, patient's was at the bedside, IM along with the patient' s nurse the consult discussed risks and consequences and complications of leaving AMA in the middle of the treatment, patient verbalized understanding And insisted on leaving the hospital, and she wants to go to a different rehabilitation after going home, patient's was in agreement with this plan,Signed the necessary papers and left AMA Discharge diagnoses; -Alcohol withdrawal; --Mild psychosis; alcohol related --Chronic alcohol use; counseling done --Ongoing tobacco use; Disposition: [id number] LEFT AGAINST MED ADVICE Time spent for discharge: 31 min Core Measure Documentation - Palliative Care Palliative Care/ Comfort Measures: Not Applicable - Core Measures Any of the following diagnoses?: none Exam - Constitutional Vitals: Temp Pulse Resp BP Pulse Ox 97.9 F 83 20 130/87 95 01/23/18 08:38 01/23/18 08:38 01/23/18 08:38 01/23/18 08:38 01/23/18 08:38 General appearance: Present: no acute distress, well-nourished - EENT Eyes: Present: PERRL, EOM intact - Neck Neck: Present: supple, normal ROM - Respiratory Respiratory effort: normal Respiratory: bilateral: diminished, negative: rales, rhonchi, wheezing - Cardiovascular Rhythm: regular Heart Sounds: Present: S1 & S2 - Extremities Extremities: no ischemia, No edema - Abdominal General gastrointestinal: Present: soft, non-tender, non-distended, normal bowel sounds - Integumentary Integumentary: Present: clear, warm - Musculoskeletal Musculoskeletal: strength equal bilaterally, generalized weakness - Psychiatric Psychiatric: appropriate mood/affect, cooperative - Neurologic Neurologic: CNII-XII intact, moves all extremities Plan Activity: advance as tolerated, no driving until cleared by PCP, fall precautions Diet: regular Additional Instructions: Patient Left AMA Follow up with: PRIMARY CARE, [Primary Care Provider] - 3-5 Days
== END 2018-01-23 12:20 | disposition left against medical advice (07) | DRG 894 ==
LOC: ED 19:04 → 3A 01-22 07:56 → MSU 01-22 16:06
PROVIDERS: ADMIT Internal Medicine; ATTEND Internal Medicine
DX: F10.239 Alcohol dependence with withdrawal, unspecified (principal); F17.200 Nicotine dependence, unspecified, uncomplicated; F41.9 Anxiety disorder, unspecified; F43.10 Post-traumatic stress disorder, unspecified; Z88.2 Allergy status to sulfonamides; Z72.89 Other problems related to lifestyle; Z71.41 Alcohol abuse counseling and surveillance of alcoholic; Z71.6 Tobacco abuse counseling; I10 Essential (primary) hypertension; F10.959 Alcohol use, unspecified with alcohol-induced psychotic disorder, unspecified
CPT/HCPCS: 36415; 80048; 80307; 80320; 81001; 84703; 85025; G0480; J1650; J2060; J2405; J3411; J7030

== ENCOUNTER 2018-10-06 22:36 | Emergency (ER) | payer OTHER ==
[2018-10-06 22:47] VITALS: BP 135/97
[2018-10-06 23:41] LABS: BUN/Creatinine Ratio 17; Blood Urea Nitrogen 10 mg/dL (7-17); Calcium 8.9 mg/dL (8.4-10.2); Hemolysis Index 7
[2018-10-06 23:42] LABS: Basophils # (Auto) 0.1 K/mm3 (0.0-0.1); Eosinophils # (Auto) 0.3 K/mm3 (0.0-0.4); Eosinophils % (Auto) 3.9 % (0.0-4.3); Hematocrit 43.7 % (30.3-42.9); Hemoglobin 15.5 gm/dl (10.1-14.3); Lymphocytes # (Auto) 1.9 K/mm3 (1.2-5.4); Lymphocytes % (Auto) 25.6 % (13.4-35.0); Mean Corpuscular HGB Conc 35 % (30-34); Mean Corpuscular Volume 86 fl (79-97); Monocytes % (Auto) 13.8 % (0.0-7.3); Platelet Count 281 K/mm3 (140-440); Red Cell Distribution Width 16.7 % (13.2-15.2)
== END 2018-10-07 | disposition left against medical advice (07) ==
LOC: ED 22:36
DX: F19.239 Other psychoactive substance dependence with withdrawal, unspecified (principal); Z53.21 Procedure and treatment not carried out due to patient leaving prior to being seen by health care provider
CPT/HCPCS: 36415; 80048; 84703; 85025; G0480; 80320

== ENCOUNTER 2019-04-22 11:31 | Emergency (ER) | payer OTHER ==
[2019-04-22 11:52] VITALS: BP 132/79
[2019-04-22] MEDS ORDERED: NORCO 5/325 PO ONE (11:53)
--- NOTE | 2019-04-22 11:54 | Event Note ---
ED Screening Note Date of service: 04/22/19 Time: 11:50 ED Screening Note: 48 yo Female who left AMA out of [facility] 2 days ago presents with pain from fall of a 3 story building 6 weeks ago major cc today pain This initial assessment/diagnostic orders/clinical plan/treatment(s) is/are joaquin bject to change based on patients health status, clinical progression and re- assessment by fellow clinical providers in the ED. Further treatment and workup at subsequent clinical providers discretion. Patient/guardian urged not to elope from the ED as their condition may be serious if not clinically assessed and managed. Initial orders include: norco ordered prednisone pain control home f/u with [facility]
--- NOTE | 2019-04-22 13:11 | Emergency Department Report ---
ED Back Pain/Injury HPI - General Chief Complaint: Back Pain/Injury Stated Complaint: BACK PAIN Time Seen by Provider: 04/22/19 11:50 Source: patient Limitations: No Limitations - History of Present Illness Initial Comments: 48-year-old female with a past medical history of alcohol abuse as per medical record, seizures, PTSD, hypertension, and back surgery status post recent tra umatic back injury presents to the hospital complaining of severe back pain. Patient signed out against medical staffing coordinator phone [facility] 2 days ago after trauma admission. On March 11 patient had a fall from a three-story building resulting in fracture of several of her lumbar vertebrae. She had an extensive treatment during admission including ICU admission, tracheostomy, and back surgery. She denies other bodily injury. Her discharge was pending home health arrangements. Patient had plans to move out of state and therefore signed out AGAINST MEDICAL ADVICE. She now states that she can't do anything on her own and her has to go back to work he can't help her with her daily needs. She also states to sleep due to pain. She is wearing her back brace as instructed while she is ambulating and using a walker. Patient contacted [facility] social work and was informed that no one was available over the weekend but she may return to the ER on Wednesday to have her home health support arranged. Patient is requesting medications for pain to temporize her symptoms until she can follow-up on Wednesday. - Related Data Previous Rx's Medication Instructions Recorded Last Taken Type Oxycodone HCl/Acetaminophen 1 each PO Q6HR PRN #20 tablet 04/22/19 Unknown Rx [Percocet 10/325 mg] Allergies Allergy/AdvReac Type Severity Reaction Status Date / Time Sulfa (Sulfonamide Allergy Rash Verified 01/15/18 11:52 Antibiotics) ED Review of Systems ROS: Stated complaint: BACK PAIN Other details as noted in HPI Comment: All other systems reviewed and negative ED Past Medical Hx - Past Medical History Previous Medical History?: Yes Hx Hypertension: Yes Hx Congestive Heart Failure: No Hx Diabetes: No Hx Seizures: Yes Hx Psychiatric Treatment: Yes (PTSD) Hx Asthma: No Hx COPD: No Additional medical history: Alcoholism - Surgical History Past Surgical History?: Yes Hx Cholecystectomy: No Hx Appendectomy: No Additional Surgical History: back surgery - Social History Smoking Status: Former Smoker Substance Use Type: None - Medications Home Medications: Home Medications Medication Instructions Recorded Confirmed Last Taken Type Oxycodone HCl/Acetaminophen 1 each PO Q6HR PRN #20 tablet 04/22/19 Unknown Rx [Percocet 10/325 mg] ED Physical Exam - General Limitations: No Limitations - Other Other exam information: Normal: No acute distress Head: Atraumatic Eyes: Normal appearance, pupils equally reactive to light, extraocular movements intact ENT: Moist mucous membranes Neck: Normal appearance, no midline cervical tenderness, no meningismus Chest: Clear to auscultation bilaterally, no wheezes, rales, crackles Cardiovascular: Regular rate and rhythm Abdomen: Soft, nontender, nondistended, no rebound or guarding, normal bowel sounds Back: Patient has a anterior posterior back brace for support. Healing surgical wounds noted along both sides of the vertebrae at the lower back. No warmth or erythema. Extremity: Normal appearance, full range of motion Neuro: Alert and oriented 3, speech normal, no gross motor sensory deficit Psych: Appropriate Skin: No rash ED Course Vital Signs 04/22/19 11:48 Temperature 98 F Pulse Rate 98 H Respiratory 18 Rate Blood Pressure 132/79 ED Medical Decision Making - Medical Decision Making Patient presents to the hospital with ongoing pain since signing out AMA on April 19 for [facility]. [place] prescription drug monitoring site reviewed. Patient fill Percocet 5/325, 12 tablets on April 19 which is a 3 day supply. - Differential Diagnosis acute on chronic pain, recent surgery, Critical Care Time: No Critical care attestation.: If time is entered above; I have spent that time in minutes in the direct care of this critically ill patient, excluding procedure time. ED Disposition Clinical Impression: Back pain with history of spinal surgery, Inadequate pain control Disposition: -01 TO HOME OR SELFCARE Is pt being admited?: No Does the pt Need Aspirin: No Condition: Stable Instructions: Back Pain (ED), Thoracolumbar Fracture (ED) Additional Instructions: Take your medications as prescribed. Follow-up with your doctor or the clinic/doctor provided. Return if symptoms worsen. Prescriptions: Oxycodone HCl/Acetaminophen [Percocet 10/325 mg] 1 each PO Q6HR PRN #20 tablet PRN Reason: Pain Referrals: [facility] [Outside] - 04/24/19 Time of Disposition: 13:30
== END 2019-04-22 14:21 | disposition home or self-care (01) ==
LOC: ED 11:31
DX: M54.9 Dorsalgia, unspecified (principal); G89.18 Other acute postprocedural pain; F43.10 Post-traumatic stress disorder, unspecified; I10 Essential (primary) hypertension; Z98.890 Other specified postprocedural states; Z88.2 Allergy status to sulfonamides; Z79.899 Other long term (current) drug therapy; Z87.891 Personal history of nicotine dependence
CPT/HCPCS: 99282

== ENCOUNTER 2019-06-06 20:20 | Emergency (ER) | payer SELFPAY ==
[2019-06-06 21:41] VITALS: BP 116/83
== END 2019-06-06 21:15 | disposition left against medical advice (07) ==
LOC: ED 20:20
DX: R51 Headache (principal); Z53.21 Procedure and treatment not carried out due to patient leaving prior to being seen by health care provider

== ENCOUNTER 2019-06-18 11:20 | Inpatient (IN) | payer OTHER ==
[2019-06-18] MEDS ORDERED: THIAMINE 100 MG, FOLIC ACID 1 MG, MULTIPLE VITAMIN INJ, ADULT 10 ML in SODIUM CHLORIDE ... IV ONE (12:32)
[2019-06-18] MEDS ORDERED: LORazepam 2 MG/ML VIAL IV ONE ×2 (12:32→21:00)
[2019-06-18 12:35] LABS: Basophils % (Auto) 0.8 % (0.0-1.8); Eosinophils # (Auto) 0.2 K/mm3 (0.0-0.4); Eosinophils % (Auto) 3.3 % (0.0-4.3); Hematocrit 41.7 % (30.3-42.9); Hemoglobin 13.9 gm/dl (10.1-14.3); Lymphocytes # (Auto) 1.2 K/mm3 (1.2-5.4); Lymphocytes % (Auto) 19.5 % (13.4-35.0); Mean Corpuscular HGB Conc 34 % (30-34); Mean Corpuscular Volume 85 fl (79-97); Monocytes # (Auto) 0.5 K/mm3 (0.0-0.8); Platelet Count 242 K/mm3 (140-440); Red Cell Distribution Width 19.3 % (13.2-15.2)
[2019-06-18 12:41] LABS: Creatine Kinase MB 3.2 ng/mL (0.0-4.0)
[2019-06-18 12:42] LABS: BUN/Creatinine Ratio 20; Blood Urea Nitrogen 8 mg/dL (7-17); Calcium 8.9 mg/dL (8.4-10.2); Hemolysis Index 1
[2019-06-18 12:44] LABS: Alanine Aminotransferase 24 units/L (7-56); Albumin 4.3 g/dL (3.9-5)
[2019-06-18 12:46] LABS: Bilirubin,Direct < 0.2 mg/dL (0-0.2); INR 0.96 (0.87-1.13)
[2019-06-18 12:47] LABS: Partial Thromboplastin Time 24.9 Sec. (24.2-36.6)
--- NOTE | 2019-06-18 13:19 | XRay Report ---
CHEST 1 VIEW INDICATION: hypertension. COMPARISON: 06/09/2019 FINDINGS: Support devices: None. Heart: Within normal limits. Lungs/Pleura: No acute air space or interstitial disease. Additional findings: None. IMPRESSION: 1. No acute findings. Signer Name: Willy Obrien MD Signed: 06/18/2019 1:15 PM Workstation Name: [id number]
[2019-06-18 13:20] LABS: Bacteria,Urine 1+ /HPF (Negative); Bilirubin,Urine NEG (Negative); Blood,Urine NEG (Negative); Color,Urine Yellow (Yellow); Mucus,Urine FEW /HPF; Urobilinogen,Urine < 2.0 mg/dL (<2.0)
[2019-06-18 13:23] LABS: Amphetamine Screen,Urine PRESUMPTIVE NEGATIVE; Benzodiazepines Screen,Urine PRESUMPTIVE NEGATIVE; Cannabinoid Screen,Urine PRESUMPTIVE NEGATIVE; Cocaine Screen,Urine PRESUMPTIVE NEGATIVE; Methadone Screen,Urine PRESUMPTIVE NEGATIVE; Opiate Screen,Urine PRESUMPTIVE NEGATIVE
--- NOTE | 2019-06-18 13:32 | Cat Scan Report ---
CT head without contrast INDICATION : syncope, AMS. TECHNIQUE: Axial imaging performed from the skull apex through the skull base without the use of con trast. All CT scans at this location are performed using CT dose reduction for ALARA by means of aut omated exposure control. COMPARISON: 06/09/2019 FINDINGS: Parenchyma: No acute intracranial hemorrhage or parenchymal abnormality. Ventricles: Ventricles are normal in size and appear symmetric. Soft tissues: Soft tissues including the orbits appear normal. Bones: No acute osseous abnormality. Sinuses: Sinuses and mastoid air cells are clear. IMPRESSION: No acute abnormality. Signer Name: Willy Obrien MD Signed: 06/18/2019 1:28 PM Workstation Name: [id number]
--- NOTE | 2019-06-18 14:39 | Event Note ---
Im feeling sick again. I was drinking. History of present illness: 47 YO Female with Alcohol Dependence, Anxiety, PTSD presents to ED for evaluation. Pt states that she drinks alcohol every day that she can get it, and her last drink was this morning. Pt acknowledges drinking again since her last [facility] on [facility]. Pt acknowledges headache, nausea, restlessness, anxiety, tremors, agitation,insomnia for the past 4 days, feeling confused, as well and auditory and visual hallucinations. Pt seen and evaluated in ED and found to have Alcohol Withdrawl, complicated by delirium. Pt admitted to [facility] for medical stabilization for complicated Alcohol withdrawl. No reports of fever, chills, CP, Palpitations, Trauma, BRBPR, Unintentional weight loss, skin rash, night sweats, or recent ill contacts. Past History Past Medical History: other (PTSD, Anxiety, ) Past Surgical History: Social history: , alcohol abuse Family history: no significant family history (reviewed)
--- NOTE | 2019-06-18 14:43 | Emergency Department Report ---
ED General Adult HPI - General Chief complaint: Overdose Stated complaint: OVERDOSE Time Seen by Provider: 06/18/19 11:41 Source: patient, EMS Mode of arrival: Stretcher Limitations: No Limitations - History of Present Illness Initial comments: This is a 48 year old female who states that she took 300 gabapentin pills over the course of a half hour. Her states that this occurred 1-2 hours prior to arrival. She did not vomit. She states "why am I still here". She appears to be a somewhat unreliable historian stating she has never taken an overdose before and the presence of her . He states that she has taken a prior overdose about 2 years ago. In addition he states he were both intact lab [facility] a few days ago. This resulted in him being admitted to [place]. The patient herself has a number of dog bites. She is not complaining of these. They were apparently sutured. She is not currently taking an antibiotic. She is not really apparently depressed. She states she knows it is Wednesday but appears to be a bit disoriented with respect to time stating it is 5 PM when it is closer to 1 PM. In any case he is otherwise reasonably oriented. states she has been abusing alcohol. Patient states that she stopped re cently but odor is consistent with alcohol. In addition, the states that the patient has passed out or times over the last few days". Patient herself does not report any head injury, headache, respiratory symptoms or chest pain. -: Gradual, days(s) Severity scale (0 -10): 0 Consistency: constant Improves with: none Worsens with: none Associated Symptoms: denies other symptoms - Related Data Previous Rx's Medication Instructions Recorded Last Taken Type Oxycodone HCl/Acetaminophen 1 each PO Q6HR PRN #20 tablet 04/22/19 Unknown Rx [Percocet 10/325 mg] Allergies Allergy/AdvReac Type Severity Reaction Status Date / Time Sulfa (Sulfonamide Allergy Rash Verified 01/15/18 11:52 Antibiotics) ED Review of Systems ROS: Stated complaint: OVERDOSE Other details as noted in HPI Constitutional: other Eyes: denies: eye pain, eye discharge, vision change ENT: denies: ear pain, throat pain Respiratory: denies: cough, shortness of breath, wheezing Cardiovascular: syncope. denies: chest pain, palpitations Endocrine: no symptoms reported Gastrointestinal: denies: abdominal pain, nausea, diarrhea Genitourinary: denies: urgency, dysuria, discharge Musculoskeletal: denies: back pain, joint swelling, arthralgia Skin: denies: rash, lesions Neurological: denies: headache, weakness, paresthesias Psychiatric: anxiety, depression, suicidal thoughts Hematological/Lymphatic: denies: easy bleeding, easy bruising ED Past Medical Hx - Past Medical History Hx Hypertension: Yes Hx Congestive Heart Failure: No Hx Diabetes: No Hx Seizures: Yes Hx Psychiatric Treatment: Yes (PTSD) Hx Asthma: No Hx COPD: No Additional medical history: Alcoholism - Surgical History Hx Cholecystectomy: No Hx Appendectomy: No Additional Surgical History: back surgery - Social History Smoking Status: Current Every Day Smoker Substance Use Type: Alcohol - Medications Home Medications: Home Medications Medication Instructions Recorded Confirmed Last Taken Type Oxycodone HCl/Acetaminophen 1 each PO Q6HR PRN #20 tablet 04/22/19 Unknown Rx [Percocet 10/325 mg] ED Physical Exam - General Limitations: No Limitations General appearance: alert, in no apparent distress, other (somewhat tremulous) - Head Head exam: Present: atraumatic, normocephalic - Eye Eye exam: Present: normal appearance. Absent: scleral icterus - ENT ENT exam: Present: mucous membranes moist - Neck Neck exam: Present: normal inspection - Respiratory Respiratory exam: Present: normal lung sounds bilaterally. Absent: respiratory distress - Cardiovascular Cardiovascular Exam: Present: regular rate, normal rhythm. Absent: systolic murmur, diastolic murmur, rubs, gallop - GI/Abdominal GI/Abdominal exam: Present: soft, normal bowel sounds. Absent: distended, tenderness, guarding, rebound, rigid - Extremities Exam Extremities exam: Present: other (all total healing dog bite somewhat sutures. There is surrounding erythema but no cellulitis) - Back Exam Back exam: Present: normal inspection - Neurological Exam Neurological exam: Present: alert, altered (mildly), CN II-XII intact. Absent: motor sensory deficit - Psychiatric Psychiatric exam: Present: agitated, flat affect - Skin Skin exam: Present: warm, dry, intact, normal color. Absent: rash ED Course Vital Signs 06/18/19 11:50 Temperature 98.4 F Pulse Rate 117 H Respiratory 18 Rate Blood Pressure 148/102 [Left] O2 Sat by Pulse 99 Oximetry - Reevaluation(s) Reevaluation #1: Patient states improvement of milligram of Ativan. I'm sure she will require a CIWA protocol later. I will place her on by mouth Augmentin and give her a tetanus toxoid if needed. A 1013 is executed. Mental health to see as an inpatient. Refer to the hospitalist staff for further care. 06/18/19 14:45 ED Medical Decision Making - Lab Data Result diagrams: 06/18/19 11:59 06/18/19 11:59 Laboratory Results - last 24 hr 06/18/19 06/18/19 06/18/19 11:59 11:59 11:59 WBC RBC Hgb Hct MCV MCH MCHC RDW Plt Count Lymph % (Auto) Shannon % (Auto) Eos % (Auto) Baso % (Auto) Lymph # Shannon # Eos # Baso # Seg Neutrophils % Seg Neutrophils # PT INR APTT Sodium 141 Potassium 4.0 Chloride 98.4 Carbon Dioxide 21 L Anion Gap 26 BUN 8 Creatinine 0.4 L Estimated GFR > 60 BUN/Creatinine Ratio 20 Glucose 124 H Calcium 8.9 Magnesium Total Bilirubin Direct Bilirubin AST ALT Alkaline Phosphatase Total Creatine Kinase 228 H CK-MB (CK-2) 3.2 CK-MB (CK-2) Rel Index 1.4 Total Protein Albumin Albumin/Globulin Ratio Urine Color Urine Turbidity Urine pH Ur Specific [place] Urine Protein Urine Glucose (UA) Urine Ketones Urine Blood Urine Nitrite Urine Bilirubin Urine Urobilinogen Ur Leukocyte Esterase Urine WBC (Auto) Urine RBC (Auto) U Epithel Cells (Auto) Urine Bacteria (Auto) Urine Mucus Salicylates < 0.3 L Urine Opiates Screen Urine Methadone Screen Acetaminophen < 5.0 L Ur Barbiturates Screen Ur Phencyclidine Scrn Ur Amphetamines Screen U Benzodiazepines Scrn Urine Cocaine Screen U Marijuana (THC) Screen Drugs of Abuse Note Plasma/Serum Alcohol 06/18/19 06/18/19 06/18/19 11:59 11:59 11:59 WBC 5.9 RBC 4.90 Hgb 13.9 Hct 41.7 MCV 85 MCH 29 MCHC 34 RDW 19.3 H Plt Count 242 Lymph % (Auto) 19.5 Shannon % (Auto) 9.0 H Eos % (Auto) 3.3 Baso % (Auto) 0.8 Lymph # 1.2 Shannon # 0.5 Eos # 0.2 Baso # 0.0 Seg Neutrophils % 67.4 Seg Neutrophils # 4.0 PT INR APTT Sodium Potassium Chloride Carbon Dioxide Anion Gap BUN Creatinine Estimated GFR BUN/Creatinine Ratio Glucose Calcium Magnesium 2.10 Total Bilirubin 0.30 Direct Bilirubin < 0.2 AST 28 ALT 24 Alkaline Phosphatase 124 Total Creatine Kinase CK-MB (CK-2) CK-MB (CK-2) Rel Index Total Protein 8.2 Albumin 4.3 Albumin/Globulin Ratio 1.1 Urine Color Urine Turbidity Urine pH Ur Specific [place] Urine Protein Urine Glucose (UA) Urine Ketones Urine Blood Urine Nitrite Urine Bilirubin Urine Urobilinogen Ur Leukocyte Esterase Urine WBC (Auto) Urine RBC (Auto) U Epithel Cells (Auto) Urine Bacteria (Auto) Urine Mucus Salicylates Urine Opiates Screen Urine Methadone Screen Acetaminophen Ur Barbiturates Screen Ur Phencyclidine Scrn Ur Amphetamines Screen U Benzodiazepines Scrn Urine Cocaine Screen U Marijuana (THC) Screen Drugs of Abuse Note Plasma/Serum Alcohol 0.26 H 06/18/19 06/18/19 06/18/19 11:59 Unknown Unknown WBC RBC Hgb Hct MCV MCH MCHC RDW Plt Count Lymph % (Auto) Shannon % (Auto) Eos % (Auto) Baso % (Auto) Lymph # Shannon # Eos # Baso # Seg Neutrophils % Seg Neutrophils # PT 12.7 INR 0.96 APTT 24.9 Sodium Potassium Chloride Carbon Dioxide Anion Gap BUN Creatinine Estimated GFR BUN/Creatinine Ratio Glucose Calcium Magnesium Total Bilirubin Direct Bilirubin AST ALT Alkaline Phosphatase Total Creatine Kinase CK-MB (CK-2) CK-MB (CK-2) Rel Index Total Protein Albumin Albumin/Globulin Ratio Urine Color Yellow Urine Turbidity Slightly-cloudy Urine pH 6.0 Ur Specific [place] 1.009 Urine Protein 30 mg/dl Urine Glucose (UA) Neg Urine Ketones Neg Urine Blood Neg Urine Nitrite Pos Urine Bilirubin Neg Urine Urobilinogen < 2.0 Ur Leukocyte Esterase Neg Urine WBC (Auto) 5.0 Urine RBC (Auto) 3.0 U Epithel Cells (Auto) 8.0 Urine Bacteria (Auto) 1+ Urine Mucus Few Salicylates Urine Opiates Screen Presumptive negative Urine Methadone Screen Presumptive negative Acetaminophen Ur Barbiturates Screen Presumptive negative Ur Phencyclidine Scrn Presumptive negative Ur Amphetamines Screen Presumptive negative U Benzodiazepines Scrn Presumptive negative Urine Cocaine Screen Presumptive negative U Marijuana (THC) Screen Presumptive negative Drugs of Abuse Note Disclamer Plasma/Serum Alcohol Critical care attestation.: If time is entered above; I have spent that time in minutes in the direct care of this critically ill patient, excluding procedure time. ED Disposition Clinical Impression: Alcohol abuse, Suicide attempt Alcohol dependency Qualifiers: Substance use status: unspecified alcohol-induced disorder Qualified Code(s): F10.29 - Alcohol dependence with unspecified alcohol-induced disorder Psychosis Qualifiers: Psychosis type: unspecified psychosis type Qualified Code(s): F29 - Unspecified psychosis not due to a substance or known physiological condition Overdose Qualifiers: Encounter type: initial encounter Injury intent: intentional self-harm Qualified Code(s): T50.902A - Poisoning by unspecified drugs, medicaments and biological substances, intentional self-harm, initial encounter Disposition: DC-09 OP ADMIT IP TO THIS HOSP Is pt being admited?: Yes Does the pt Need Aspirin: No Condition: Stable Referrals: PRIMARY CARE, [Primary Care Provider] - 3-5 Days Time of Disposition: 14:49
[2019-06-18] MEDS ORDERED: SODIUM CHLORIDE 0.9% 1000 ML 1,000 ML IV ONE (15:00)
[2019-06-18] MEDS ORDERED: SODIUM CHLORIDE 0.9% 1000 ML 1,000 ML IV SCH (15:00)
[2019-06-18] MEDS: AMOXICILLIN/K CLAV 875/125MG TAB PO SCH ×2 (16:09→21:21)
[2019-06-18] MEDS: SODIUM CHLORIDE 0.9% 1000 ML 1,000 ML IV SCH (20:49)
--- NOTE | 2019-06-18 20:56 | History and Physical Report ---
History of Present Illness Date of admission: 06/18/19 14:28 Chief complaint: Im sleepy History of present illness: 48 YO Female with PTSD, Seizure Disorder, Nicotine Dependence, ETOH Dependence presents to ED for evaluation. Pt is intoxicated at time of my exam. Pt reports that she took approximately 300 Neurontin tablets today in an attempt to take her own life. EMS notified, and upon arrival the patient was found to be in distress and transported to [facility]. Pt seen and evaluated in ED and found to be intoxicated with Suicide Attempt. Mental health consulted in ED. Prior admission on 01/22/18 reviewed. No medication listed for reconciliation at time of admission. 1013 placed in ED for Suicide attempt. Past History Past Medical History: other (see hpi) Past Surgical History: Other (back surgery) Social history: , lives with family, smoking, alcohol abuse Family history: no significant family history (reviewed) Medications and Allergies Allergies Allergy/AdvReac Type Severity Reaction Status Date / Time Sulfa (Sulfonamide Allergy Rash Verified 01/15/18 11:52 Antibiotics) Home Medications Medication Instructions Recorded Confirmed Last Taken Type Oxycodone HCl/Acetaminophen 1 each PO Q6HR PRN #20 tablet 04/22/19 Unknown Rx [Percocet 10/325 mg] Active Meds: Active Medications Amoxicillin/Clavulanate Potassium (Augmentin 875 Mg) 1 each PO BID CARLOS Last Admin: 06/18/19 16:09 Dose: 1 each Documented by: Sodium Chloride (Nacl 0.9% 1000 Ml) 1,000 mls @ 125 mls/hr IV DIRECT CARLOS Last Admin: 06/18/19 20:49 Dose: 125 mls/hr Documented by: Lorazepam (Ativan) 2 mg IV ONCE ONE Stop: 06/18/19 21:01 Last Admin: 06/18/19 20:49 Dose: 2 mg Documented by: Review of Systems ROS unobtainable: due to mental status Exam - Constitutional Vitals: Temp Pulse Resp BP Pulse Ox 98.4 F 114 H 18 101/66 99 06/18/19 11:50 06/18/19 17:05 06/18/19 17:05 06/18/19 17:05 06/18/19 17:05 General appearance: Present: mild distress - EENT Eyes: Present: PERRL ENT: hearing intact, clear oral mucosa - Neck Neck: Present: supple, normal ROM - Respiratory Respiratory effort: normal Respiratory: bilateral: CTA - Cardiovascular Heart Sounds: Present: S1 & S2. Absent: rub, click - Extremities Extremities: pulses symmetrical, No edema Peripheral Pulses: within normal limits - Abdominal General gastrointestinal: Present: soft, non-tender, non-distended, normal bowel sounds Female genitourinary: Present: normal - Integumentary Integumentary: Present: clear, warm, dry - Musculoskeletal Musculoskeletal: generalized weakness - Psychiatric Psychiatric: appropriate mood/affect, intact judgment & insight, no memory intact, no cooperative - Neurologic Neurologic: CNII-XII intact, moves all extremities, no gait normal Results - Labs CBC & Chem 7: 06/18/19 11:59 06/18/19 11:59 Labs: Abnormal lab results 06/18/19 06/18/19 06/18/19 Range/Units 11:59 11:59 11:59 RDW (13.2-15.2) % [place] % (Auto) (0.0-7.3) % Carbon Dioxide 21 L (22-30) mmol/L Creatinine 0.4 L (0.7-1.2) mg/dL Glucose 124 H (65-100) mg/dL Total Creatine Kinase 228 H (30-135) units/L Salicylates < 0.3 L (2.8-20.0) mg/dL Acetaminophen < 5.0 L (10.0-30.0) ug/mL Plasma/Serum Alcohol (0-0.07) % 06/18/19 06/18/19 Range/Units 11:59 11:59 RDW 19.3 H (13.2-15.2) % [place] % (Auto) 9.0 H (0.0-7.3) % Carbon Dioxide (22-30) mmol/L Creatinine (0.7-1.2) mg/dL Glucose (65-100) mg/dL Total Creatine Kinase (30-135) units/L Salicylates (2.8-20.0) mg/dL Acetaminophen (10.0-30.0) ug/mL Plasma/Serum Alcohol 0.26 H (0-0.07) % Assessment and Plan - Patient Problems (1) Alcohol intoxication Current Visit: Yes Status: Acute Qualifiers: Complication of substance-induced condition: with unspecified complication Qualified Code(s): F10.929 - Alcohol use, unspecified with intoxication, unspecified Plan to address problem: CIWA protocol, thiamine, folic acid, multivitamin, supportive care. (2) Nicotine dependence Current Visit: Yes Status: Acute Qualifiers: Substance use status: in withdrawal Plan to address problem: smoking cessation counseling, supportive care. (3) Suicide attempt Current Visit: Yes Status: Acute Plan to address problem: [address], Mental Health consulted. (4) DVT prophylaxis Current Visit: Yes Status: Acute Plan to address problem: SCD to BLE while in bed.
[2019-06-19] MEDS ORDERED: HYDROmorphone 1 MG/1 ML INJ IV ONE (02:30)
[2019-06-19] MEDS ORDERED: LORazepam 2 MG/ML VIAL IV ONE (02:30)
[2019-06-19] MEDS ORDERED: LORazepam 2 MG/ML VIAL ONE (06:51)
[2019-06-19] MEDS: AMOXICILLIN/K CLAV 875/125MG TAB PO SCH ×2 (09:20→21:53)
[2019-06-19] MEDS: HYDROmorphone 1 MG/1 ML INJ IV PRN ×5 (09:54→21:54)
[2019-06-19] MEDS ORDERED: FLU VACC QUAD 2019-20 (3 YR UP)/PF 60 MCG/0.5 ML SYRINGE IM ONE (12:00)
--- NOTE | 2019-06-19 13:38 | Consultation ---
History of Present Illness - Reason for Consult Consult date: 06/19/19 Reason for consult: Mental Health Evaluation Requesting physician: HARPREET LEVY - Chief Complaint Chief complaint: "I did want to kill myself" - History of Present Psychiatric Illness 48 y.o. white female female who presented to the ER for overdosing on several Gabapentin pills. Today the patient was calm and cooperative during the assessment. She admitted to ingesting the Gabapentin pills to kill herself. She stated that she is having marital and family problems that has exacerbated her depression. The patient stated that she has a hx of depression/anxiety. She stated that she was overwhelmed prior to her arrival to the ER. She rate her depression 6/10, with 10 being the worse. She acknowledged several suicide attempts in the past with mental health hospitalizations. She denies HI's and AVH's. She would not confirm or deny SI's. She acknowledged erratic sleep and a poor appetite. She denies recreational drug, but acknowledged increased alcohol (etoh) intake. Medications and Allergies Allergies Allergy/AdvReac Type Severity Reaction Status Date / Time Sulfa (Sulfonamide Allergy Rash Verified 01/15/18 11:52 Antibiotics) Home Medications Medication Instructions Recorded Confirmed Last Taken Type Oxycodone HCl/Acetaminophen 1 each PO Q6HR PRN #20 tablet 04/22/19 06/19/19 Unknown Rx [Percocet 10/325 mg] Cyclobenzaprine 10 mg PO Q6H PRN 06/19/19 06/19/19 Unknown History Gabapentin 400 mg PO TID 06/19/19 06/19/19 Unknown History Active Meds: Active Medications Amoxicillin/Clavulanate Potassium (Augmentin 875 Mg) 1 each PO BID CARLOS Last Admin: 06/19/19 09:20 Dose: 1 each Documented by: Hydromorphone HCl (Dilaudid) 0.5 mg IV Q3H PRN PRN Reason: Pain , Severe (7-10) Last Admin: 06/19/19 12:56 Dose: 0.5 mg Documented by: Sodium Chloride (Nacl 0.9% 1000 Ml) 1,000 mls @ 125 mls/hr IV DIRECT CARLOS Last Admin: 06/18/19 20:49 Dose: 125 mls/hr Documented by: Past psychiatric history - Past Medical History Past Medical History: other (Back injury) Past Surgical History: Other (back Surgey) - past Psychiatric treatment and history psychiatric treatment history: Several inpatient psy settings. Denies a fam psy hx. - Social History Social history: lives with family Mental Status Exam - Vital signs Last Vital Signs Temp 98.2 F 06/19/19 09:57 Pulse 101 H 06/19/19 09:57 Resp 19 06/19/19 09:57 BP 116/76 06/19/19 09:57 Pulse Ox 98 06/19/19 09:57 - Exam Narrative exam: MSE: Appearance: calm, cooperative Behavior: poor eye contact Speech: regular rate and tone Mood: "sad" Affect: congruent to mod Thought Process: circumstantial Thought Content: denies HI's and AVH's Motor Activity: ambulatory Cognition: A/O x 3 Insight: fair Judgment: poor Results Result Diagrams: 06/18/19 11:59 06/18/19 11:59 All other labs normal. Assessment and Plan Assessment and plan: Impression: MDD. Alcohol Used DO. Today the patient was calm and cooperative during the assessment. DDx: Alcohol Induced Recommendation/Plan: Continue 1013 and start Lexapro 5 mg PO daily for depression, Melatonin 5 mg PO HS for sleep, and Buspar 7.5 mg PO BID for anxiety. Discussed possible suicidality/medication induced coleman with the patient reference Lexapro, she verbalized understanding. Dispo: The patient will be referred to inpatient psy services once medically clear. Staffed with Dr Olivai Mcfadden.
--- NOTE | 2019-06-19 15:22 | Progress Note ---
Assessment and Plan (1) Alcohol intoxication Current Visit: Yes Status: Acute Qualifiers: Complication of substance-induced condition: with unspecified complication Qualified Code(s): F10.929 - Alcohol use, unspecified with intoxication, unspecified Plan to address problem: CIWA protocol, thiamine, folic acid, multivitamin, supportive care. Patient wants outpatient rehabilitation for Etoh dependence (2) Nicotine dependence Current Visit: Yes Status: Acute Qualifiers: Substance use status: in withdrawal Plan to address problem: smoking cessation counseling, supportive care. (3) Suicide attempt Current Visit: Yes Status: Acute Plan to address problem: [address], Mental Health consulted. Patient wants outpatient rehabilitation (4) DVT prophylaxis Current Visit: Yes Status: Acute Plan to address problem: SCD to BLE while in bed. Subjective Date of service: 06/19/19 Principal diagnosis: ETOH dependence Interval history: 48 YO Female with PTSD, Seizure Disorder, Nicotine Dependence, ETOH Dependence presents to ED for evaluation. Pt is intoxicated at time of my exam. Pt reports that she took approximately 300 Neurontin tablets today in an attempt to take her own life. EMS notified, and upon arrival the patient was found to be in distress and transported to [facility]. Pt seen and evaluated in ED and found to be intoxicated with Suicide Attempt. Mental health consulted in ED. Prior admission on 01/22/18 reviewed. No medication listed for reconciliation at time of admission. 1013 placed in ED for Suicide attempt. Symptomatically better. No agitation or withdrawal tremors. Crying often. Objective - Constitutional Vitals: Vital Signs - 12hr 06/19/19 06/19/19 05:37 09:57 Temperature 98.6 F 98.2 F Pulse Rate 90 101 H Respiratory 19 Rate Blood Pressure 140/89 Blood Pressure 116/76 [Left] O2 Sat by Pulse 95 98 Oximetry General appearance: Present: no acute distress, well-nourished - EENT Eyes: PERRL, EOM intact ENT: hearing intact, clear oral mucosa Ears: bilateral: normal - Neck Neck: supple, normal ROM - Respiratory Respiratory effort: normal Respiratory: bilateral: CTA - Breasts Breasts: normal - Cardiovascular Heart rate: 76 Rhythm: regular Heart Sounds: Present: S1 & S2. Absent: gallop, rub Extremities: no ischemia, pulses intact, No edema, normal color, Full ROM - Gastrointestinal General gastrointestinal: Present: soft, non-tender, non-distended, normal bowel sounds - Genitourinary Female genitourinary: normal - Integumentary Integumentary: clear, warm, dry - Musculoskeletal Musculoskeletal: 1, strength equal bilaterally - Neurologic Neurologic: moves all extremities - Psychiatric Psychiatric: appropriate mood/affect, intact judgment & insight, memory intact, depressed - Labs CBC & Chem 7: 06/18/19 11:59 06/18/19 11:59
[2019-06-19] MEDS ORDERED: NON-FORMULARY EACH (Cyclobenzaprine 10 MG) PO PRN (16:01)
[2019-06-19] MEDS ORDERED: NON-FORMULARY EACH (Oxycodone Hcl/Acetaminophen [Percocet 10/325 Mg] 1 EACH) PO PRN (16:01)
[2019-06-19] MEDS ORDERED: CYCLOBENZAPRINE 10 MG TAB PO PRN (16:34)
[2019-06-19] MEDS ORDERED: oxyCODONE 5 MG TAB PO PRN (16:36)
[2019-06-19] MEDS: busPIRone 5 MG TAB PO SCH ×2 (17:52→21:54)
[2019-06-19] MEDS: ESCITALOPRAM 10 MG TAB PO SCH (17:54)
[2019-06-19] MEDS: SODIUM CHLORIDE 0.9% 1000 ML 1,000 ML IV SCH (19:47)
[2019-06-19] MEDS ORDERED: GABAPENTIN 400 MG PO SCH (20:00)
[2019-06-19] MEDS: GABAPENTIN 400 MG CAP PO SCH (21:54)
[2019-06-20] MEDS: HYDROmorphone 1 MG/1 ML INJ IV PRN ×4 (00:52→11:24)
[2019-06-20] MEDS: oxyCODONE /ACETAMINOPHEN 5-325MG TAB PO PRN ×4 (03:51→19:41)
[2019-06-20 06:12] LABS: Basophils % (Auto) 0.7 % (0.0-1.8); Eosinophils # (Auto) 0.5 K/mm3 (0.0-0.4); Eosinophils % (Auto) 9.7 % (0.0-4.3); Hematocrit 36.1 % (30.3-42.9); Hemoglobin 11.7 gm/dl (10.1-14.3); Lymphocytes # (Auto) 1.7 K/mm3 (1.2-5.4); Lymphocytes % (Auto) 34.9 % (13.4-35.0); Mean Corpuscular HGB Conc 33 % (30-34); Mean Corpuscular Volume 85 fl (79-97); Monocytes # (Auto) 0.5 K/mm3 (0.0-0.8); Monocytes % (Auto) 9.9 % (0.0-7.3); Platelet Count 148 K/mm3 (140-440); Red Blood Count 4.23 M/mm3 (3.65-5.03); Red Cell Distribution Width 18.7 % (13.2-15.2)
[2019-06-20] MEDS: SODIUM CHLORIDE 0.9% 1000 ML 1,000 ML IV SCH ×3 (06:13→23:04)
[2019-06-20 06:24] LABS: Alanine Aminotransferase 19 units/L (7-56); Albumin 3.6 g/dL (3.9-5); BUN/Creatinine Ratio 13; Blood Urea Nitrogen 5 mg/dL (7-17); Calcium 8.8 mg/dL (8.4-10.2); Hemolysis Index 3
[2019-06-20] MEDS: GABAPENTIN 400 MG CAP PO SCH ×3 (07:58→19:41)
[2019-06-20] MEDS: AMOXICILLIN/K CLAV 875/125MG TAB PO SCH ×2 (09:25→21:56)
[2019-06-20] MEDS: busPIRone 5 MG TAB PO SCH ×2 (09:25→21:56)
[2019-06-20] MEDS: ESCITALOPRAM 10 MG TAB PO SCH (09:26)
--- NOTE | 2019-06-20 12:48 | Progress Note ---
Assessment and Plan Assessment and plan: Alcohol intoxication CIWA protocol, thiamine, folic acid, multivitamin, supportive care. Patient wants outpatient rehabilitation for Etoh dependence Nicotine dependence smoking cessation counseling, supportive care. Suicide attempt [address], Mental Health consulted. following has :1 sitter Chronic back pain Cont narcotics DVT prophylaxis SCD to BLE while in bed. History Interval history: suicidal back pain from multiple surgeries Hospitalist Physical - Physical exam Narrative exam: Gen: Not in acute distress, sitting up in bed HEENT: Normocephalic, atraumatic Neck: supple, no JVD Heart: S1 and S2 reg, no murmurs, rubs or gallop Lungs: Clear to auscultation, no rhonchi, no wheeze Abd: soft, non tender, non distended, normal BS, Ext: No edema, no clubbing, no cyanosis Neuro: Awake, alert, oriented X 3, anxious, no focal neurological signs - Constitutional Vitals: Temp Pulse Resp BP Pulse Ox 98.1 F 93 H 20 155/102 98 06/20/19 01:22 06/20/19 03:01 06/20/19 01:22 06/20/19 01:22 06/20/19 01:22 General appearance: Present: no acute distress, obese Results - Labs CBC & Chem 7: 06/20/19 05:06 06/20/19 05:06 Labs: Laboratory Last Values WBC 5.0 K/mm3 (4.5-11.0) 06/20/19 05:06 RBC 4.23 M/mm3 (3.65-5.03) 06/20/19 05:06 Hgb 11.7 gm/dl (10.1-14.3) 06/20/19 05:06 Hct 36.1 % (30.3-42.9) 06/20/19 05:06 MCV 85 fl (79-97) 06/20/19 05:06 MCH 28 pg (28-32) 06/20/19 05:06 MCHC 33 % (30-34) 06/20/19 05:06 RDW 18.7 % (13.2-15.2) H 06/20/19 05:06 Plt Count 148 K/mm3 (140-440) 06/20/19 05:06 Lymph % (Auto) 34.9 % (13.4-35.0) 06/20/19 05:06 [place] % (Auto) 9.9 % (0.0-7.3) H 06/20/19 05:06 Eos % (Auto) 9.7 % (0.0-4.3) H 06/20/19 05:06 Baso % (Auto) 0.7 % (0.0-1.8) 06/20/19 05:06 Lymph # 1.7 K/mm3 (1.2-5.4) 06/20/19 05:06 [place] # 0.5 K/mm3 (0.0-0.8) 06/20/19 05:06 Eos # 0.5 K/mm3 (0.0-0.4) H 06/20/19 05:06 Baso # 0.0 K/mm3 (0.0-0.1) 06/20/19 05:06 Seg Neutrophils % 44.8 % (40.0-70.0) 06/20/19 05:06 Seg Neutrophils # 2.2 K/mm3 (1.8-7.7) 06/20/19 05:06 PT 12.7 Sec. (12.2-14.9) 06/18/19 11:59 INR 0.96 (0.87-1.13) 06/18/19 11:59 APTT 24.9 Sec. (24.2-36.6) 06/18/19 11:59 Sodium 137 mmol/L (137-145) 06/20/19 05:06 Potassium 3.6 mmol/L (3.6-5.0) 06/20/19 05:06 Chloride 103.0 mmol/L (98-107) 06/20/19 05:06 Carbon Dioxide 21 mmol/L (22-30) L 06/20/19 05:06 Anion Gap 17 mmol/L 06/20/19 05:06 BUN 5 mg/dL (7-17) L 06/20/19 05:06 Creatinine 0.4 mg/dL (0.7-1.2) L 06/20/19 05:06 Estimated GFR > 60 ml/min 06/20/19 05:06 BUN/Creatinine Ratio 13 % 06/20/19 05:06 Glucose 109 mg/dL (65-100) H 06/20/19 05:06 Calcium 8.8 mg/dL (8.4-10.2) 06/20/19 05:06 Magnesium 2.10 mg/dL (1.7-2.3) 06/18/19 11:59 Total Bilirubin 0.40 mg/dL (0.1-1.2) 06/20/19 05:06 Direct Bilirubin < 0.2 mg/dL (0-0.2) 06/18/19 11:59 AST 21 units/L (5-40) 06/20/19 05:06 ALT 19 units/L (7-56) 06/20/19 05:06 Alkaline Phosphatase 98 units/L (35-129) 06/20/19 05:06 Total Creatine Kinase 228 units/L (30-135) H 06/18/19 11:59 CK-MB (CK-2) 3.2 ng/mL (0.0-4.0) 06/18/19 11:59 CK-MB (CK-2) Rel Index 1.4 (0-4) 06/18/19 11:59 Total Protein 7.0 g/dL (6.3-8.2) 06/20/19 05:06 Albumin 3.6 g/dL (3.9-5) L 06/20/19 05:06 Albumin/Globulin Ratio 1.1 % 06/20/19 05:06 Urine Color Yellow (Yellow) 06/18/19 Unknown Urine Turbidity Slightly-cloudy (Clear) 06/18/19 Unknown Urine pH 6.0 (5.0-7.0) 06/18/19 Unknown Ur Specific [place] 1.009 (1.003-1.030) 06/18/19 Unknown Urine Protein 30 mg/dl mg/dL (Negative) 06/18/19 Unknown Urine Glucose (UA) Neg mg/dL (Negative) 06/18/19 Unknown Urine Ketones Neg mg/dL (Negative) 06/18/19 Unknown Urine Blood Neg (Negative) 06/18/19 Unknown Urine Nitrite Pos (Negative) 06/18/19 Unknown Urine Bilirubin Neg (Negative) 06/18/19 Unknown Urine Urobilinogen < 2.0 mg/dL (<2.0) 06/18/19 Unknown Ur Leukocyte Esterase Neg (Negative) 06/18/19 Unknown Urine WBC (Auto) 5.0 /HPF (0.0-6.0) 06/18/19 Unknown Urine RBC (Auto) 3.0 /HPF (0.0-6.0) 06/18/19 Unknown U Epithel Cells (Auto) 8.0 /HPF (0-13.0) 06/18/19 Unknown Urine Bacteria (Auto) 1+ /HPF (Negative) 06/18/19 Unknown Urine Mucus Few /HPF 06/18/19 Unknown Salicylates < 0.3 mg/dL (2.8-20.0) L 06/18/19 11:59 Urine Opiates Screen Presumptive negative 06/18/19 Unknown Urine Methadone Screen Presumptive negative 06/18/19 Unknown Acetaminophen < 5.0 ug/mL (10.0-30.0) L 06/18/19 11:59 Ur Barbiturates Screen Presumptive negative 06/18/19 Unknown Ur Phencyclidine Scrn Presumptive negative 06/18/19 Unknown Ur Amphetamines Screen Presumptive negative 06/18/19 Unknown U Benzodiazepines Scrn Presumptive negative 06/18/19 Unknown Urine Cocaine Screen Presumptive negative 06/18/19 Unknown U Marijuana (THC) Screen Presumptive negative 06/18/19 Unknown Drugs of Abuse Note Disclamer 06/18/19 Unknown Plasma/Serum Alcohol 0.01 % (0-0.07) 06/18/19 20:16 Active Medications - Current Medications Current Medications: Generic Name Dose Route Start Last Admin Trade Name Freq PRN Reason Stop Dose Admin Amoxicillin/Clavulanate Potassium 1 each 06/18/19 15:00 06/20/19 09:25 Augmentin 875 Mg PO 1 each BID CARLOS Administration Buspirone HCl 7.5 mg 06/19/19 14:00 06/20/19 09:25 Buspar PO 7.5 mg BID CARLOS Administration Cyclobenzaprine HCl 10 mg 06/19/19 16:34 Flexeril PO Q6H PRN Muscle Spasm, PAIN (4-6) Escitalopram Oxalate 5 mg 06/19/19 14:00 06/20/19 09:26 Lexapro PO 5 mg QDAY CARLOS Administration Gabapentin 400 mg 06/19/19 20:00 06/20/19 07:58 Gabapentin PO 400 mg TID CARLOS Administration Hydromorphone HCl 0.5 mg 06/19/19 09:22 06/20/19 11:24 Dilaudid IV 0.5 mg Q3H PRN Administration Pain , Severe (7-10) Sodium Chloride 1,000 mls @ 125 mls/hr 06/18/19 15:00 06/20/19 06:13 Nacl 0.9% 1000 Ml IV 125 mls/hr DIRECT CARLOS Administration Melatonin 5 mg 06/19/19 13:45 Melatonin PO QHS PRN Sleep Oxycodone HCl 5 mg 06/19/19 16:36 Roxicodone PO Q6H PRN Pain, Moderate (4-6) Oxycodone/Acetaminophen 1 tab 06/19/19 16:35 06/20/19 09:25 Percocet 5/325 PO 1 tab Q6H PRN Administration Pain, Moderate (4-6)
[2019-06-20] MEDS: NICOTINE 21 MG/24 HR PATCH TD SCH (13:10)
--- NOTE | 2019-06-20 14:05 | Progress Note ---
Subjective - Reason for Consult Consult date: 06/20/19 Reason for consult: Psychiatry Follow-up - Chief Complaint Chief complaint: "I've done some thinking" 48 y.o. white female female who presented to the ER for overdosing on several Gabapentin pills. Today the patient was calm and cooperative during the assessment. She stated that she have done some thinking reference her actions prior to her ER visit. She stated that she was "overwhelmed." She stated that she must work on her coping skills. She denies SI/HI's and AVH's. She denies any side effects from her medication. Mental Status Exam - Vital signs Last Vital Signs Temp 98.1 F 06/20/19 01:22 Pulse 93 H 06/20/19 03:01 Resp 20 06/20/19 01:22 BP 155/102 06/20/19 01:22 Pulse Ox 98 06/20/19 01:22 - Exam Narrative exam: MSE: Appearance: calm, cooperative Behavior: regular eye contact Speech: regular rate and tone Mood: "okay" Affect: congruent to mod Thought Process: circumstantial Thought Content: denies SI/HI's and AVH's Motor Activity: ambulatory Cognition: A/O x 3 Insight: fair Judgment: variable Assessment and Plan Impression: MDD. Alcohol Used DO. Today the patient was calm and cooperative during the assessment. DDx: Alcohol Induced Mood DO Recommendation/Plan: Continue 1013, Lexapro 5 mg PO daily for depression, Melatonin 5 mg PO HS for sleep, and Buspar 7.5 mg PO BID for anxiety. Discussed possible suicidality/medication induced coleman with the patient reference Lexapro, she verbalized understanding. Dispo: The patient will be referred to inpatient psy services once medically clear. Will staff with Dr Olivia Mcfadden.
[2019-06-20] MEDS: MELATONIN 5 MG TAB PO PRN (21:56)
[2019-06-21] MEDS: oxyCODONE /ACETAMINOPHEN 5-325MG TAB PO PRN ×4 (01:24→22:39)
[2019-06-21] MEDS ORDERED: LORazepam 2 MG/ML VIAL IV PRN (01:42)
[2019-06-21] MEDS: LORazepam 2 MG/ML VIAL IV PRN ×2 (02:11→10:22)
[2019-06-21] MEDS: GABAPENTIN 400 MG CAP PO SCH ×3 (08:36→22:33)
[2019-06-21] MEDS: SODIUM CHLORIDE 0.9% 1000 ML 1,000 ML IV SCH ×2 (08:37→17:38)
--- NOTE | 2019-06-21 09:02 | Event Note ---
Date: 06/21/19 Patient is medically cleared.
[2019-06-21] MEDS: AMOXICILLIN/K CLAV 875/125MG TAB PO SCH ×2 (10:19→22:35)
[2019-06-21] MEDS: NICOTINE 21 MG/24 HR PATCH TD SCH (10:19)
[2019-06-21] MEDS: ESCITALOPRAM 10 MG TAB PO SCH (10:20)
[2019-06-21] MEDS: busPIRone 5 MG TAB PO SCH ×2 (10:31→22:34)
--- NOTE | 2019-06-21 15:03 | Progress Note ---
Subjective - Reason for Consult Consult date: 06/21/19 Reason for consult: Psychiatric Follow-up Evaluation - Chief Complaint Chief complaint: "Not so good " Patient is a 48 y.o. white female female who presented to the ER for overdosing on several Gabapentin pills. Today the patient is anxious and irritated during the assessment. Patient is somewhat "irritable." She reports " I'm upset because I can't get to the [facility]. They treat me for my PTSD and MDD." She reports appropriate energy, appetite, and sleep. Discussed the importance of implementing coping skills. She denies SI/HI's , AVH's, and delusions. She denies any side effects from her medication. Mental Status Exam - Vital signs Last Vital Signs Temp 98.9 F 06/21/19 12:48 Pulse 99 H 06/21/19 12:48 Resp 20 06/21/19 12:48 BP 149/89 06/21/19 12:48 Pulse Ox 97 06/21/19 12:48 - Exam Narrative exam: Mental Status Exam: Appearance: anxious, irritable, cooperative Behavior: regular eye contact Speech: rapid rate and tone Mood: anxious and irritable Affect: congruent to mod Thought Process: circumstantial Thought Content: denies SI/HI's, AVH's, and delusions Motor Activity: ambulatory Cognition: A/O x 3 Insight: poor Judgment: variable Assessment and Plan Impression: MDD. Alcohol Used DO. Today the patient is anxious and irritable during the assessment. She is insists that she be discharged so that she can go [facility]. DDx: Alcohol Induced Mood DO Recommendation/Plan: 1. Continue 1013. 2. Continue Lexapro 5 mg PO daily for depression, Melatonin 5 mg PO HS for sleep, and Buspar 7.5 mg PO BID for anxiety. Discussed possible suicidality/medication induced coleman with the patient reference Lexapro, she verbalized understanding. Disposition: The patient will be referred to inpatient psy services once medically clear. Will staff with Dr. Olivia Mcfadden.
--- NOTE | 2019-06-21 16:30 | Progress Note ---
Assessment and Plan Assessment and plan: Alcohol intoxication CIWA protocol, thiamine, folic acid, multivitamin, supportive care. Patient wants outpatient rehabilitation for Etoh dependence Nicotine dependence smoking cessation counseling, supportive care. Suicide attempt [address], Mental Health consulted. following has :1 sitter Chronic back pain Cont narcotics DVT prophylaxis SCD to BLE while in bed. Medically stable for discharge. Awaiting placement. History Interval history: suicidal back pain from multiple surgeries Hospitalist Physical - Physical exam Narrative exam: Gen: Not in acute distress, sitting up in bed HEENT: Normocephalic, atraumatic Neck: supple, no JVD Heart: S1 and S2 reg, no murmurs, rubs or gallop Lungs: Clear to auscultation, no rhonchi, no wheeze Abd: soft, non tender, non distended, normal BS, Ext: No edema, no clubbing, no cyanosis Neuro: Awake, alert, oriented X 3, anxious, no focal neurological signs - Constitutional Vitals: Temp Pulse Resp BP Pulse Ox 98.9 F 99 H 20 149/89 97 06/21/19 12:48 06/21/19 12:48 06/21/19 12:48 06/21/19 12:48 06/21/19 12:48 General appearance: Present: no acute distress, obese Results - Labs CBC & Chem 7: 06/20/19 05:06 06/20/19 05:06 Labs: Laboratory Last Values WBC 5.0 K/mm3 (4.5-11.0) 06/20/19 05:06 RBC 4.23 M/mm3 (3.65-5.03) 06/20/19 05:06 Hgb 11.7 gm/dl (10.1-14.3) 06/20/19 05:06 Hct 36.1 % (30.3-42.9) 06/20/19 05:06 MCV 85 fl (79-97) 06/20/19 05:06 MCH 28 pg (28-32) 06/20/19 05:06 MCHC 33 % (30-34) 06/20/19 05:06 RDW 18.7 % (13.2-15.2) H 06/20/19 05:06 Plt Count 148 K/mm3 (140-440) 06/20/19 05:06 Lymph % (Auto) 34.9 % (13.4-35.0) 06/20/19 05:06 [place] % (Auto) 9.9 % (0.0-7.3) H 06/20/19 05:06 Eos % (Auto) 9.7 % (0.0-4.3) H 06/20/19 05:06 Baso % (Auto) 0.7 % (0.0-1.8) 06/20/19 05:06 Lymph # 1.7 K/mm3 (1.2-5.4) 06/20/19 05:06 [place] # 0.5 K/mm3 (0.0-0.8) 06/20/19 05:06 Eos # 0.5 K/mm3 (0.0-0.4) H 06/20/19 05:06 Baso # 0.0 K/mm3 (0.0-0.1) 06/20/19 05:06 Seg Neutrophils % 44.8 % (40.0-70.0) 06/20/19 05:06 Seg Neutrophils # 2.2 K/mm3 (1.8-7.7) 06/20/19 05:06 PT 12.7 Sec. (12.2-14.9) 06/18/19 11:59 INR 0.96 (0.87-1.13) 06/18/19 11:59 APTT 24.9 Sec. (24.2-36.6) 06/18/19 11:59 Sodium 137 mmol/L (137-145) 06/20/19 05:06 Potassium 3.6 mmol/L (3.6-5.0) 06/20/19 05:06 Chloride 103.0 mmol/L (98-107) 06/20/19 05:06 Carbon Dioxide 21 mmol/L (22-30) L 06/20/19 05:06 Anion Gap 17 mmol/L 06/20/19 05:06 BUN 5 mg/dL (7-17) L 06/20/19 05:06 Creatinine 0.4 mg/dL (0.7-1.2) L 06/20/19 05:06 Estimated GFR > 60 ml/min 06/20/19 05:06 BUN/Creatinine Ratio 13 % 06/20/19 05:06 Glucose 109 mg/dL (65-100) H 06/20/19 05:06 POC Glucose 125 (70-105) H 06/20/19 12:47 Calcium 8.8 mg/dL (8.4-10.2) 06/20/19 05:06 Magnesium 2.10 mg/dL (1.7-2.3) 06/18/19 11:59 Total Bilirubin 0.40 mg/dL (0.1-1.2) 06/20/19 05:06 Direct Bilirubin < 0.2 mg/dL (0-0.2) 06/18/19 11:59 AST 21 units/L (5-40) 06/20/19 05:06 ALT 19 units/L (7-56) 06/20/19 05:06 Alkaline Phosphatase 98 units/L (35-129) 06/20/19 05:06 Total Creatine Kinase 228 units/L (30-135) H 06/18/19 11:59 CK-MB (CK-2) 3.2 ng/mL (0.0-4.0) 06/18/19 11:59 CK-MB (CK-2) Rel Index 1.4 (0-4) 06/18/19 11:59 Total Protein 7.0 g/dL (6.3-8.2) 06/20/19 05:06 Albumin 3.6 g/dL (3.9-5) L 06/20/19 05:06 Albumin/Globulin Ratio 1.1 % 06/20/19 05:06 Urine Color Yellow (Yellow) 06/18/19 Unknown Urine Turbidity Slightly-cloudy (Clear) 06/18/19 Unknown Urine pH 6.0 (5.0-7.0) 06/18/19 Unknown Ur Specific [place] 1.009 (1.003-1.030) 06/18/19 Unknown Urine Protein 30 mg/dl mg/dL (Negative) 06/18/19 Unknown Urine Glucose (UA) Neg mg/dL (Negative) 06/18/19 Unknown Urine Ketones Neg mg/dL (Negative) 06/18/19 Unknown Urine Blood Neg (Negative) 06/18/19 Unknown Urine Nitrite Pos (Negative) 06/18/19 Unknown Urine Bilirubin Neg (Negative) 06/18/19 Unknown Urine Urobilinogen < 2.0 mg/dL (<2.0) 06/18/19 Unknown Ur Leukocyte Esterase Neg (Negative) 06/18/19 Unknown Urine WBC (Auto) 5.0 /HPF (0.0-6.0) 06/18/19 Unknown Urine RBC (Auto) 3.0 /HPF (0.0-6.0) 06/18/19 Unknown U Epithel Cells (Auto) 8.0 /HPF (0-13.0) 06/18/19 Unknown Urine Bacteria (Auto) 1+ /HPF (Negative) 06/18/19 Unknown Urine Mucus Few /HPF 06/18/19 Unknown Salicylates < 0.3 mg/dL (2.8-20.0) L 06/18/19 11:59 Urine Opiates Screen Presumptive negative 06/18/19 Unknown Urine Methadone Screen Presumptive negative 06/18/19 Unknown Acetaminophen < 5.0 ug/mL (10.0-30.0) L 06/18/19 11:59 Ur Barbiturates Screen Presumptive negative 06/18/19 Unknown Ur Phencyclidine Scrn Presumptive negative 06/18/19 Unknown Ur Amphetamines Screen Presumptive negative 06/18/19 Unknown U Benzodiazepines Scrn Presumptive negative 06/18/19 Unknown Urine Cocaine Screen Presumptive negative 06/18/19 Unknown U Marijuana (THC) Screen Presumptive negative 06/18/19 Unknown Drugs of Abuse Note Disclamer 06/18/19 Unknown Plasma/Serum Alcohol 0.01 % (0-0.07) 06/18/19 20:16 Active Medications - Current Medications Current Medications: Generic Name Dose Route Start Last Admin Trade Name Freq PRN Reason Stop Dose Admin Amoxicillin/Clavulanate Potassium 1 each 06/18/19 15:00 06/21/19 10:19 Augmentin 875 Mg PO 1 each BID CARLOS Administration Buspirone HCl 7.5 mg 06/19/19 14:00 06/21/19 10:31 Buspar PO 7.5 mg BID CARLOS Administration Cyclobenzaprine HCl 10 mg 06/19/19 16:34 Flexeril PO Q6H PRN Muscle Spasm, PAIN (4-6) Escitalopram Oxalate 5 mg 06/19/19 14:00 06/21/19 10:20 Lexapro PO 5 mg QDAY CARLOS Administration Gabapentin 400 mg 06/19/19 20:00 06/21/19 16:13 Gabapentin PO 400 mg TID CARLOS Administration Sodium Chloride 1,000 mls @ 125 mls/hr 11/03/19 15:00 06/21/19 08:37 Nacl 0.9% 1000 Ml IV 125 mls/hr DIRECT CARLOS Administration Lorazepam 2 mg 06/21/19 01:42 06/21/19 10:22 Ativan IV 2 mg Q1H PRN Administration CIWA-Ar 8-15 Lorazepam 4 mg 06/21/19 01:42 Ativan IV Q1H PRN CIWA-Ar 16-25 Melatonin 5 mg 06/19/19 13:45 06/20/19 21:56 Melatonin PO 5 mg QHS PRN Administration Sleep Nicotine 21 mg 06/20/19 13:00 06/21/19 10:19 Habitrol TD 21 mg QDAY CARLOS Administration Oxycodone/Acetaminophen 2 tab 06/20/19 12:49 06/21/19 16:13 Percocet 5/325 PO 2 tab Q6H PRN Administration Pain, Moderate (4-6)
[2019-06-22] MEDS: LORazepam 2 MG/ML VIAL IV PRN ×3 (02:37→21:38)
[2019-06-22] MEDS: SODIUM CHLORIDE 0.9% 1000 ML 1,000 ML IV SCH (03:47)
[2019-06-22] MEDS: MELATONIN 5 MG TAB PO PRN ×2 (03:47→21:38)
[2019-06-22] MEDS: oxyCODONE /ACETAMINOPHEN 5-325MG TAB PO PRN ×3 (05:05→18:27)
[2019-06-22] MEDS: GABAPENTIN 400 MG CAP PO SCH ×3 (11:23→21:38)
[2019-06-22] MEDS: AMOXICILLIN/K CLAV 875/125MG TAB PO SCH ×2 (11:23→21:38)
[2019-06-22] MEDS: ESCITALOPRAM 10 MG TAB PO SCH (11:23)
[2019-06-22] MEDS: NICOTINE 21 MG/24 HR PATCH TD SCH (11:24)
[2019-06-22] MEDS: busPIRone 5 MG TAB PO SCH ×2 (11:25→21:38)
--- NOTE | 2019-06-22 14:42 | Progress Note ---
Subjective - Reason for Consult Consult date: 06/22/19 Reason for consult: Psychiatry Follow-up - Chief Complaint Chief complaint: "Not so good " Patient is a 48 y.o. white female female who presented to the ER for overdosing on several Gabapentin pills. Today the patient was anxious during the assessment. She feel like she can do her psy treatment in a outpatient settings. She did not want to discuss her actions prior to coming to the hospital after several attempts at trying to engage her. She denies SI/HI's and AVH's. She denies any side effects from her medication. Mental Status Exam - Vital signs Last Vital Signs Temp 98.8 F 06/22/19 11:27 Pulse 80 06/22/19 11:27 Resp 18 06/22/19 11:27 BP 131/80 06/22/19 11:27 Pulse Ox 96 06/22/19 05:06 - Exam Narrative exam: MSE: Appearance: calm, cooperative Behavior: regular eye contact Speech: regular rate and tone Mood: "anxious" evasive Affect: congruent to mod Thought Process: circumstantial Thought Content: denies SI/HI's and AVH's Motor Activity: ambulatory Cognition: A/O x 3 Insight: fair Judgment: somewhat variable Assessment and Plan Impression: MDD. Alcohol Used DO. Today the patient was calm and cooperative during the assessment. No acute withdrawals noted (etoh). DDx: Alcohol Induced Mood DO Recommendation/Plan: Continue 1013, Lexapro 5 mg PO daily for depression, Melatonin 5 mg PO HS for sleep, and Buspar 7.5 mg PO BID for anxiety. CIWA? Discussed possible suicidality/medication induced coleman with the patient reference Lexapro, she verbalized understanding. Dispo: The patient was referred to inpatient psy services. Will staff with Dr Olivia Mcfadden.
--- NOTE | 2019-06-22 16:57 | Discharge Summary ---
Providers - Providers Date of Admission: 06/19/19 16:12 Date of discharge: 06/22/19 Attending physician: PHYLLIS SANCHEZ 06/18/19 14:47 Consult to Mental Health [CONS] Stat Reason For Exam: overdose, suicidal intent Place consult to:: mental health Notified:: no 06/19/19 11:48 Consult to Case Management [CONS] Routine Services Needed at Discharge: Other Notified:: cadence Phone number called:: cadence 06/20/19 12:14 Consult to Wound/ET Nurse [CONS] Routine Reason For Exam: wound eval Primary care physician: MUFFLER HAND Hospitalization Condition: Fair Hospital course: Patient is 48 YO Female with PTSD, Seizure Disorder, Nicotine Dependence, ETOH Dependence presents to ED for evaluation. Patient was intoxicated at time of evaluation in ED. She reports that she took approximately 300 Neurontin tablets in an attempt to take her own life. Pt seen and evaluated in ED and found to be intoxicated with Suicide Attempt. Mental health consulted in ED. Patient admitted under 1013 status. She improved medically and cleared for discharge to Psych facility. She was subsequently discharged to [facility] Alcohol intoxication CIWA protocol, thiamine, folic acid, multivitamin, supportive care. Nicotine dependence smoking cessation counseling, supportive care. Suicide attempt [address], Mental Health consulted. following has 1:1 sitter Chronic back pain Cont narcotics Total time spent on discharge, 32 mins Disposition: [id number] PSY HOSP/PSY UNIT - Discharge Diagnoses (1) Alcohol dependency Status: Acute Qualifiers: Substance use status: unspecified alcohol-induced disorder Qualified C ode(s): F10.29 - Alcohol dependence with unspecified alcohol-induced disorder (2) Alcohol intoxication Status: Acute Qualifiers: Complication of substance-induced condition: with unspecified complication Qualified Code(s): F10.929 - Alcohol use, unspecified with intoxication, unspecified (3) Nicotine dependence Status: Acute Qualifiers: Substance use status: in withdrawal (4) Suicide attempt Status: Acute Core Measure Documentation - Palliative Care Palliative Care/ Comfort Measures: Not Applicable - Core Measures Any of the following diagnoses?: none Exam - Constitutional Vitals: Temp Pulse Resp BP Pulse Ox 98.8 F 80 18 131/80 96 06/22/19 11:27 06/22/19 11:27 06/22/19 11:27 06/22/19 11:27 06/22/19 05:06 Plan Activity: advance as tolerated Diet: low fat, low cholesterol, low salt Plan of Treatment: 1.Follow up with PCP in 1 week Follow up with: PRIMARY CAREMD [Primary Care Provider] - 3-5 Days
--- NOTE | 2019-06-22 16:57 | Progress Note ---
Assessment and Plan Assessment and plan: Alcohol intoxication CIWA protocol, thiamine, folic acid, multivitamin, supportive care. Patient wants outpatient rehabilitation for Etoh dependence Nicotine dependence smoking cessation counseling, supportive care. Suicide attempt [address], Mental Health consulted. following has 1:1 sitter Chronic back pain Cont narcotics DVT prophylaxis SCD to BLE while in bed. Medically stable for discharge to Psych facility. Awaiting placement. History Interval history: suicidal back pain from multiple surgeries Hospitalist Physical - Physical exam Narrative exam: Gen: Not in acute distress, sitting up in bed HEENT: Normocephalic, atraumatic Neck: supple, no JVD Heart: S1 and S2 reg, no murmurs, rubs or gallop Lungs: Clear to auscultation, no rhonchi, no wheeze Abd: soft, non tender, non distended, normal BS, Ext: No edema, no clubbing, no cyanosis Neuro: Awake, alert, oriented X 3, anxious, no focal neurological signs - Constitutional Vitals: Temp Pulse Resp BP Pulse Ox 98.8 F 80 18 131/80 96 06/22/19 11:27 06/22/19 11:27 06/22/19 11:27 06/22/19 11:27 06/22/19 05:06 General appearance: Present: no acute distress, obese Results - Labs CBC & Chem 7: 06/20/19 05:06 06/20/19 05:06 Labs: Laboratory Last Values WBC 5.0 K/mm3 (4.5-11.0) 06/20/19 05:06 RBC 4.23 M/mm3 (3.65-5.03) 06/20/19 05:06 Hgb 11.7 gm/dl (10.1-14.3) 06/20/19 05:06 Hct 36.1 % (30.3-42.9) 06/20/19 05:06 MCV 85 fl (79-97) 06/20/19 05:06 MCH 28 pg (28-32) 06/20/19 05:06 MCHC 33 % (30-34) 06/20/19 05:06 RDW 18.7 % (13.2-15.2) H 06/20/19 05:06 Plt Count 148 K/mm3 (140-440) 06/20/19 05:06 Lymph % (Auto) 34.9 % (13.4-35.0) 06/20/19 05:06 [place] % (Auto) 9.9 % (0.0-7.3) H 06/20/19 05:06 Eos % (Auto) 9.7 % (0.0-4.3) H 06/20/19 05:06 Baso % (Auto) 0.7 % (0.0-1.8) 06/20/19 05:06 Lymph # 1.7 K/mm3 (1.2-5.4) 06/20/19 05:06 [place] # 0.5 K/mm3 (0.0-0.8) 06/20/19 05:06 Eos # 0.5 K/mm3 (0.0-0.4) H 06/20/19 05:06 Baso # 0.0 K/mm3 (0.0-0.1) 06/20/19 05:06 Seg Neutrophils % 44.8 % (40.0-70.0) 06/20/19 05:06 Seg Neutrophils # 2.2 K/mm3 (1.8-7.7) 06/20/19 05:06 PT 12.7 Sec. (12.2-14.9) 06/18/19 11:59 INR 0.96 (0.87-1.13) 06/18/19 11:59 APTT 24.9 Sec. (24.2-36.6) 06/18/19 11:59 Sodium 137 mmol/L (137-145) 06/20/19 05:06 Potassium 3.6 mmol/L (3.6-5.0) 06/20/19 05:06 Chloride 103.0 mmol/L (98-107) 06/20/19 05:06 Carbon Dioxide 21 mmol/L (22-30) L 06/20/19 05:06 Anion Gap 17 mmol/L 06/20/19 05:06 BUN 5 mg/dL (7-17) L 06/20/19 05:06 Creatinine 0.4 mg/dL (0.7-1.2) L 06/20/19 05:06 Estimated GFR > 60 ml/min 06/20/19 05:06 BUN/Creatinine Ratio 13 % 06/20/19 05:06 Glucose 109 mg/dL (65-100) H 06/20/19 05:06 POC Glucose 125 (70-105) H 06/20/19 12:47 Calcium 8.8 mg/dL (8.4-10.2) 06/20/19 05:06 Magnesium 2.10 mg/dL (1.7-2.3) 06/18/19 11:59 Total Bilirubin 0.40 mg/dL (0.1-1.2) 06/20/19 05:06 Direct Bilirubin < 0.2 mg/dL (0-0.2) 06/18/19 11:59 AST 21 units/L (5-40) 06/20/19 05:06 ALT 19 units/L (7-56) 06/20/19 05:06 Alkaline Phosphatase 98 units/L (35-129) 06/20/19 05:06 Total Creatine Kinase 228 units/L (30-135) H 06/18/19 11:59 CK-MB (CK-2) 3.2 ng/mL (0.0-4.0) 06/18/19 11:59 CK-MB (CK-2) Rel Index 1.4 (0-4) 06/18/19 11:59 Total Protein 7.0 g/dL (6.3-8.2) 06/20/19 05:06 Albumin 3.6 g/dL (3.9-5) L 06/20/19 05:06 Albumin/Globulin Ratio 1.1 % 06/20/19 05:06 Urine Color Yellow (Yellow) 06/18/19 Unknown Urine Turbidity Slightly-cloudy (Clear) 06/18/19 Unknown Urine pH 6.0 (5.0-7.0) 06/18/19 Unknown Ur Specific [place] 1.009 (1.003-1.030) 06/18/19 Unknown Urine Protein 30 mg/dl mg/dL (Negative) 06/18/19 Unknown Urine Glucose (UA) Neg mg/dL (Negative) 06/18/19 Unknown Urine Ketones Neg mg/dL (Negative) 06/18/19 Unknown Urine Blood Neg (Negative) 06/18/19 Unknown Urine Nitrite Pos (Negative) 06/18/19 Unknown Urine Bilirubin Neg (Negative) 06/18/19 Unknown Urine Urobilinogen < 2.0 mg/dL (<2.0) 06/18/19 Unknown Ur Leukocyte Esterase Neg (Negative) 06/18/19 Unknown Urine WBC (Auto) 5.0 /HPF (0.0-6.0) 06/18/19 Unknown Urine RBC (Auto) 3.0 /HPF (0.0-6.0) 06/18/19 Unknown U Epithel Cells (Auto) 8.0 /HPF (0-13.0) 06/18/19 Unknown Urine Bacteria (Auto) 1+ /HPF (Negative) 06/18/19 Unknown Urine Mucus Few /HPF 06/18/19 Unknown Salicylates < 0.3 mg/dL (2.8-20.0) L 06/18/19 11:59 Urine Opiates Screen Presumptive negative 06/18/19 Unknown Urine Methadone Screen Presumptive negative 06/18/19 Unknown Acetaminophen < 5.0 ug/mL (10.0-30.0) L 06/18/19 11:59 Ur Barbiturates Screen Presumptive negative 06/18/19 Unknown Ur Phencyclidine Scrn Presumptive negative 06/18/19 Unknown Ur Amphetamines Screen Presumptive negative 06/18/19 Unknown U Benzodiazepines Scrn Presumptive negative 06/18/19 Unknown Urine Cocaine Screen Presumptive negative 06/18/19 Unknown U Marijuana (THC) Screen Presumptive negative 06/18/19 Unknown Drugs of Abuse Note Disclamer 06/18/19 Unknown Plasma/Serum Alcohol 0.01 % (0-0.07) 06/18/19 20:16 Active Medications - Current Medications Current Medications: Generic Name Dose Route Start Last Admin Trade Name Freq PRN Reason Stop Dose Admin Amoxicillin/Clavulanate Potassium 1 each 06/18/19 15:00 06/22/19 11:23 Augmentin 875 Mg PO 1 each BID CARLOS Administration Buspirone HCl 7.5 mg 06/19/19 14:00 06/22/19 11:25 Buspar PO 7.5 mg BID CARLOS Administration Cyclobenzaprine HCl 10 mg 06/19/19 16:34 Flexeril PO Q6H PRN Muscle Spasm, PAIN (4-6) Escitalopram Oxalate 5 mg 06/19/19 14:00 06/22/19 11:23 Lexapro PO 5 mg QDAY CARLOS Administration Gabapentin 400 mg 06/19/19 20:00 06/22/19 14:28 Gabapentin PO 400 mg TID CARLOS Administration Lorazepam 2 mg 06/21/19 01:42 06/22/19 15:18 Ativan IV 2 mg Q1H PRN Administration [facility] 8-15 Lorazepam 4 mg 06/21/19 01:42 06/22/19 02:38 Ativan IV 4 mg Q1H PRN Administration [facility] 16-25 Melatonin 5 mg 06/19/19 13:45 06/22/19 03:47 Melatonin PO 5 mg QHS PRN Administration Sleep Nicotine 21 mg 06/20/19 13:00 06/22/19 11:24 Habitrol TD 21 mg QDAY CARLOS Administration Oxycodone/Acetaminophen 2 tab 06/20/19 12:49 06/22/19 11:24 Percocet 5/325 PO 2 tab Q6H PRN Administration Pain, Moderate (4-6)
[2019-06-23 02:01] VITALS: BP 136/99
== END 2019-06-23 04:40 | DRG 918 ==
LOC: ED 11:20 → 3A 14:28 → OBSVTOIN 06-19 16:12
PROVIDERS: ADMIT Internal Medicine; ATTEND Internal Medicine
DX: T42.6X2A Poisoning by other antiepileptic and sedative-hypnotic drugs, intentional self-harm, initial encounter (principal); F10.239 Alcohol dependence with withdrawal, unspecified; F17.213 Nicotine dependence, cigarettes, with withdrawal; F10.229 Alcohol dependence with intoxication, unspecified; I10 Essential (primary) hypertension; F43.10 Post-traumatic stress disorder, unspecified; G89.29 Other chronic pain; M54.9 Dorsalgia, unspecified; G40.909 Epilepsy, unspecified, not intractable, without status epilepticus; Z71.6 Tobacco abuse counseling; Z88.2 Allergy status to sulfonamides; Z79.899 Other long term (current) drug therapy; Z91.5 Personal history of self-harm; Y92.098 Other place in other non-institutional residence as the place of occurrence of the external cause
CPT/HCPCS: 36415; 70450; 71045; 80048; 80053; 80076; 80307; 80320; 81001; 82550; 82553; 82962; 83735; 85025; 85610; 85730; 90686; 93005; 93010; 99406; G0378; G0480; J1170; J2060; J3411; J7030

== ENCOUNTER 2019-07-21 22:23 | Emergency (ER) | payer SELFPAY ==
[2019-07-21 22:40] VITALS: BP 90/62
== END 2019-07-22 01:22 | disposition left against medical advice (07) ==
LOC: ED 22:23
DX: M79.661 Pain in right lower leg (principal); Z53.21 Procedure and treatment not carried out due to patient leaving prior to being seen by health care provider

== ENCOUNTER 2019-07-22 18:27 | Emergency (ER) | payer BC, OTHER ==
--- NOTE | 2019-07-22 19:03 | Emergency Department Report ---
ED General Adult HPI - General Chief complaint: Fall Stated complaint: POSS OD Time Seen by Provider: 07/22/19 18:59 Source: patient, family, EMS ( EMS documentation not available at time of chart dictation ), RN notes reviewed, old records reviewed Mode of arrival: Stretcher Limitations: Altered Mental Status - History of Present Illness Initial comments: History obtained from patient, her , Mr. Jose Mae; [phone] Patient is a 49-year-old female with a history of PTSD, seizure disorder, nicotine dependence, alcohol dependence, suicide attempt. She is brought to the hospital by emergency medical services on a backboard and c-collar. Apparently, the patient was at home, while family was watching a football game, and there was a thunk and the patient was found to be unresponsive. Apparently she was given Narcan in the field which somewhat improved her unresponsiveness. Initially in the emergency room, the patient was sleepy but arousable. She was moving 4 extremities. Extensive discussion had with her , Mr. Mae. He is concerned that the patient may have overdosed on an unknown substance, and he is concerned that the patient may have been deliberately trying to harm herself. After a few hours of observation in the emergency room, the patient became more awake. She states that she has chronic lower back pain. She states that she took "an extra muscle relaxant" to help her out with her acute on chronic lower back pain. She states that she did a lot of heavy lifting yesterday. She states that her is a liar, and she states that she is not homicidal or suicidal. The patient states she did not try to overdose on anything. The patient states that she is not "suicidal this time." -: This afternoon Consistency: now resolved Improves with: none Worsens with: none - Related Data Home Medications Medication Instructions Recorded Confirmed Last Taken Cyclobenzaprine 10 mg PO Q6H PRN 06/19/19 07/26/19 Unknown Gabapentin 400 mg PO TID 06/19/19 07/26/19 Unknown Allergies Allergy/AdvReac Type Severity Reaction Status Date / Time Sulfa (Sulfonamide Allergy Rash Verified 01/15/18 11:52 Antibiotics) ED Review of Systems ROS: Stated complaint: POSS OD Other details as noted in HPI Constitutional: denies: fever Eyes: denies: eye discharge ENT: denies: congestion Respiratory: see HPI. denies: wheezing Cardiovascular: denies: palpitations Gastrointestinal: denies: vomiting Genitourinary: as per HPI Musculoskeletal: as per HPI, back pain Skin: as per HPI Neurological: as per HPI Psychiatric: as per HPI Hematological/Lymphatic: as per HPI ED Past Medical Hx - Past Medical History Hx Hypertension: Yes Hx Congestive Heart Failure: No Hx Diabetes: No Hx Seizures: Yes Hx Psychiatric Treatment: Yes (PTSD) Hx Asthma: No Hx COPD: No Additional medical history: Alcoholism, Chronic Back Pain - Surgical History Hx Cholecystectomy: No Hx Appendectomy: No Additional Surgical History: back surgery (T3-L5) - Social History Smoking Status: Current Every Day Smoker Substance Use Type: None - Medications Home Medications: Home Medications Medication Instructions Recorded Confirmed Last Taken Type Cyclobenzaprine 10 mg PO Q6H PRN 06/19/19 07/26/19 Unknown History Gabapentin 400 mg PO TID 06/19/19 07/26/19 Unknown History ED Physical Exam - General Limitations: Other (initially, the patient is very sleepy. While in her emergency room stay, she becomes quite arousable. Currently, she is alert and oriented.) General appearance: alert, in no apparent distress - Head Head exam: Present: atraumatic, normocephalic - Eye Eye exam: Present: normal appearance, EOMI. Absent: nystagmus - ENT ENT exam: Present: normal exam, normal orophraynx, mucous membranes moist, normal external ear exam - Neck Neck exam: Present: normal inspection, full ROM. Absent: tenderness, meningismus - Respiratory Respiratory exam: Present: normal lung sounds bilaterally. Absent: respiratory distress - Cardiovascular Cardiovascular Exam: Present: regular rate, normal rhythm, normal heart sounds. Absent: bradycardia, tachycardia, irregular rhythm, systolic murmur, diastolic murmur, rubs, gallop - GI/Abdominal GI/Abdominal exam: Present: soft. Absent: distended, tenderness, rigid, pulsatile mass - Rectal Rectal exam: Present: normal inspection, normal rectal tone, other (patient has no blood on rectal examination. Chaperoned by Linh Ibanez). Absent: black stool, bloody stool, fecal impaction, hemorrhoids - Extremities Exam Extremities exam: Present: normal inspection, full ROM, other (2+ pulses noted in the bilateral upper and lower extremities. There is no palpable cord. negative Homans sign. Muscular compartments are soft. The pelvis is stable.). Absent: pedal edema, joint swelling, calf tenderness - Back Exam Back exam: Present: normal inspection, full ROM. Absent: tenderness, CVA tenderness (R), CVA tenderness (L), paraspinal tenderness, vertebral tenderness - Neurological Exam Neurological exam: Present: altered (initially altered, now alert.), normal gait, other (there is no facial droop. The tongue is midline. Extraocular movements are intact bilaterally. 5 out of 5 strength in 4 extremities. Sensation is intact to light touch in 4 extremities.Patient speaking in full sentences.) - Psychiatric Psychiatric exam: Present: anxious - Skin Skin exam: Present: warm, dry, intact, normal color. Absent: rash ED Course Vital Signs 07/22/19 07/22/19 07/22/19 18:46 18:59 19:01 Temperature 97.8 F Pulse Rate 94 H 95 H 95 H Respiratory 17 20 18 Rate Blood Pressure 132/80 Blood Pressure 132/80 [Right] O2 Sat by Pulse 95 Oximetry 07/22/19 07/22/19 07/22/19 19:15 19:39 19:45 Temperature Pulse Rate 94 H 95 H 91 H Respiratory 17 15 13 Rate Blood Pressure 130/87 130/87 130/87 Blood Pressure [Right] O2 Sat by Pulse 99 98 Oximetry 07/22/19 07/22/19 07/22/19 20:00 20:15 20:30 Temperature Pulse Rate 92 H 91 H 93 H Respiratory 15 16 17 Rate Blood Pressure 125/80 123/76 117/81 Blood Pressure [Right] O2 Sat by Pulse 93 94 93 Oximetry 07/22/19 07/22/19 07/22/19 20:45 21:00 21:15 Temperature Pulse Rate Respiratory 22 13 15 Rate Blood Pressure 119/81 127/77 123/93 Blood Pressure [Right] O2 Sat by Pulse 94 95 96 Oximetry 07/22/19 07/22/19 07/23/19 21:30 21:45 01:20 Temperature 98.5 F Pulse Rate 89 Respiratory 18 12 18 Rate Blood Pressure 133/84 116/75 Blood Pressure 104/69 [Right] O2 Sat by Pulse 93 96 100 Oximetry 07/23/19 12:00 Temperature 98.0 F Pulse Rate 89 Respiratory 18 Rate Blood Pressure Blood Pressure 101/65 [Right] O2 Sat by Pulse 97 Oximetry ED Medical Decision Making - Lab Data Result diagrams: 07/22/19 21:16 07/22/19 21:16 Vital Signs 07/22/19 07/22/19 07/22/19 18:46 18:59 19:01 Temperature 97.8 F Pulse Rate 94 H 95 H 95 H Respiratory 17 20 18 Rate Blood Pressure 132/80 Blood Pressure 132/80 [Right] O2 Sat by Pulse 95 Oximetry 07/22/19 07/22/19 07/22/19 19:15 19:39 19:45 Temperature Pulse Rate 94 H 95 H 91 H Respiratory 17 15 13 Rate Blood Pressure 130/87 130/87 130/87 Blood Pressure [Right] O2 Sat by Pulse 99 98 Oximetry 07/22/19 07/22/19 07/22/19 20:00 20:15 20:30 Temperature Pulse Rate 92 H 91 H 93 H Respiratory 15 16 17 Rate Blood Pressure 125/80 123/76 117/81 Blood Pressure [Right] O2 Sat by Pulse 93 94 93 Oximetry 07/22/19 07/22/19 07/22/19 20:45 21:00 21:15 Temperature Pulse Rate Respiratory 22 13 15 Rate Blood Pressure 119/81 127/77 123/93 Blood Pressure [Right] O2 Sat by Pulse 94 95 96 Oximetry 07/22/19 07/22/19 21:30 21:45 Temperature Pulse Rate Respiratory 18 12 Rate Blood Pressure 133/84 116/75 Blood Pressure [Right] O2 Sat by Pulse 93 96 Oximetry Lab Results 07/22/19 07/22/19 07/22/19 Range/Units 18:56 21:16 21:16 WBC (4.5-11.0) K/mm3 RBC (3.65-5.03) M/mm3 Hgb (10.1-14.3) gm/dl Hct (30.3-42.9) % MCV (79-97) fl MCH (28-32) pg MCHC (30-34) % RDW (13.2-15.2) % Plt Count (140-440) K/mm3 PT (12.2-14.9) Sec. INR (0.87-1.13) APTT (24.2-36.6) Sec. Sodium (137-145) mmol/L Potassium (3.6-5.0) mmol/L Chloride (98-107) mmol/L Carbon Dioxide (22-30) mmol/L Anion Gap mmol/L BUN (7-17) mg/dL Creatinine (0.7-1.2) mg/dL Estimated GFR ml/min BUN/Creatinine Ratio % Glucose (65-100) mg/dL POC Glucose 154 H (70-105) Calcium (8.4-10.2) mg/dL Magnesium 2.10 (1.7-2.3) mg/dL Total Bilirubin (0.1-1.2) mg/dL AST (5-40) units/L ALT (7-56) units/L Alkaline Phosphatase (35-129) units/L Total Creatine Kinase 72 (30-135) units/L Total Protein (6.3-8.2) g/dL Albumin (3.9-5) g/dL Albumin/Globulin Ratio % HCG, Quant 0.710 (0-4) mIU/mL Salicylates (2.8-20.0) mg/dL Acetaminophen (10.0-30.0) ug/mL Plasma/Serum Alcohol (0-0.07) % 07/22/19 07/22/19 07/22/19 Range/Units 21:16 21:16 21:16 WBC 11.9 H (4.5-11.0) K/mm3 RBC 4.52 (3.65-5.03) M/mm3 Hgb 12.8 (10.1-14.3) gm/dl Hct 38.9 (30.3-42.9) % MCV 86 (79-97) fl MCH 28 (28-32) pg MCHC 33 (30-34) % RDW 17.9 H (13.2-15.2) % Plt Count 219 (140-440) K/mm3 PT (12.2-14.9) Sec. INR (0.87-1.13) APTT (24.2-36.6) Sec. Sodium 140 (137-145) mmol/L Potassium 4.5 (3.6-5.0) mmol/L Chloride 100.8 (98-107) mmol/L Carbon Dioxide 23 (22-30) mmol/L Anion Gap 21 mmol/L BUN 10 (7-17) mg/dL Creatinine 0.6 L (0.7-1.2) mg/dL Estimated GFR > 60 ml/min BUN/Creatinine Ratio 17 % Glucose 112 H (65-100) mg/dL POC Glucose (70-105) Calcium 9.7 (8.4-10.2) mg/dL Magnesium (1.7-2.3) mg/dL Total Bilirubin < 0.20 (0.1-1.2) mg/dL AST > 18 (5-40) units/L ALT 13 (7-56) units/L Alkaline Phosphatase 87 (35-129) units/L Total Creatine Kinase (30-135) units/L Total Protein 7.6 (6.3-8.2) g/dL Albumin 4.1 (3.9-5) g/dL Albumin/Globulin Ratio 1.2 % HCG, Quant (0-4) mIU/mL Salicylates < 0.3 L (2.8-20.0) mg/dL Acetaminophen (10.0-30.0) ug/mL Plasma/Serum Alcohol (0-0.07) % 07/22/19 07/22/19 07/22/19 Range/Units 21:16 21:16 21:16 WBC (4.5-11.0) K/mm3 RBC (3.65-5.03) M/mm3 Hgb (10.1-14.3) gm/dl Hct (30.3-42.9) % MCV (79-97) fl MCH (28-32) pg MCHC (30-34) % RDW (13.2-15.2) % Plt Count (140-440) K/mm3 PT 13.1 (12.2-14.9) Sec. INR 1.00 (0.87-1.13) APTT 25.2 (24.2-36.6) Sec. Sodium (137-145) mmol/L Potassium (3.6-5.0) mmol/L Chloride (98-107) mmol/L Carbon Dioxide (22-30) mmol/L Anion Gap mmol/L BUN (7-17) mg/dL Creatinine (0.7-1.2) mg/dL Estimated GFR ml/min BUN/Creatinine Ratio % Glucose (65-100) mg/dL POC Glucose (70-105) Calcium (8.4-10.2) mg/dL Magnesium (1.7-2.3) mg/dL Total Bilirubin (0.1-1.2) mg/dL AST (5-40) units/L ALT (7-56) units/L Alkaline Phosphatase (35-129) units/L Total Creatine Kinase (30-135) units/L Total Protein (6.3-8.2) g/dL Albumin (3.9-5) g/dL Albumin/Globulin Ratio % HCG, Quant (0-4) mIU/mL Salicylates (2.8-20.0) mg/dL Acetaminophen < 5.0 L (10.0-30.0) ug/mL Plasma/Serum Alcohol < 0.01 (0-0.07) % - EKG Data -: EKG Interpreted by Me EKG shows normal: sinus rhythm Rate: normal - EKG Data When compared to previous EKG there are: no significant change 07/22/19 22:23 The EKG today shows a sinus rhythm, 93 bpm, normal axis, QTC is 447 ms, Q waves noted in the high lateral leads - Radiology Data Radiology results: pending, report reviewed, image reviewed non contrast ct head neck and head negative - Medical Decision Making Differential diagnosis, including but not limited to: Overdose, of uncertain tent, intracranial injury, cervical spine injury Assessment and plan: 49-year-old female with history of overdose and suicidality, presenting with overdose of uncertain intent. Her immediate family and significant other are very concerned about self-harm. Patient placed on ER hold. Psychiatric consultation is requested. Please note that secondary to current institutional policies, we do not have overnight psychiatric mixer crane operator coverage from 7 PM to 7 AM. Therefore, the patient will remain in this de partment overnight pending psychiatric consultation and ultimate disposition. At this point in time, the patient is awake, protecting her airway, moving 4 extremities, and in no acute distress. Her cervical spine is cleared at this time. She is adamant that she did not try an overdose deliberately, but her history is quite inconsistent. At this point in time, the patient does not appear to have an immediate medical contraindication to psychiatric admission, evaluation, consultation and plac ement. Critical care attestation.: If time is entered above; I have spent that time in minutes in the direct care of this critically ill patient, excluding procedure time. ED Disposition Clinical Impression: Medical clearance for psychiatric admission Disposition: DC-07 LEFT AGAINST MED ADVICE Is pt being admited?: No Does the pt Need Aspirin: No Condition: Undetermined Referrals: ROLA HOLGUIN MD [Primary Care Provider] - 3-5 Days
[2019-07-22] MEDS ORDERED: HALOPERIDOL LACTATE 5 MG/1 ML INJ IM PRN (19:46)
[2019-07-22] MEDS ORDERED: LORazepam 2 MG/ML VIAL IM PRN (19:46)
--- NOTE | 2019-07-22 20:15 | Cat Scan Report ---
CT head/brain wo con INDICATION: Altered mental status, patient found unconscious.. TECHNIQUE: Routine CT head without contrast. All CT scans at this location are performed using CT dos e reduction for ALARA by means of automated exposure control. COMPARISON: Previous head CT on 06/18/2019 and 01/15/2018. FINDINGS: Exam is mildly limited due to motion artifact on multiple attempted sequences. BRAIN / INTRACRANIAL CONTENTS: No acute hemorrhage, mass effect, midline shift, or hydrocephalus. No appreciable acute large territorial or lacunar infarct. No chronic infarct or focal atrophy. Normal b rain volume and ventricular/sulcal size for age. ORBITS: No significant abnormality of visualized orbits. SINUSES / MASTOIDS: No significant abnormality of visualized sinuses and mastoid air cells. ADDITIONAL FINDINGS: None. IMPRESSION: 1. No acute intracranial abnormality. No adverse change from the prior exam. Signer Name: Bladimir Chaudhari MD Signed: 07/22/2019 8:10 PM Workstation Name: [id number]
--- NOTE | 2019-07-22 20:18 | Cat Scan Report ---
CT CERVICAL SPINE WITHOUT CONTRAST INDICATION: fall ams found down. TECHNIQUE: Axial CT images of the spine were obtained. Sagittal and coronal reformatted images were produced. Al l CT scans at this location are performed using CT dose reduction for ALARA by means of automated exp osure control. COMPARISON: None available. FINDINGS: ACUTE FRACTURE(S) OR SUBLUXATION: None. SPINAL DEGENERATIVE CHANGES: Mild degenerative disc disease at C5-6 with mild disc height loss and en dplate osteophyte formation. Mild left neural foraminal narrowing at C5-6 due to uncovertebral DJD. PARASPINAL SOFT TISSUES: No soft tissue swelling or other acute abnormalities. ADDITIONAL FINDINGS: No significant additional findings. IMPRESSION: 1. No acute fracture or subluxation in the spine in neutral position. Signer Name: Bladimir Chaudhari MD Signed: 07/22/2019 8:13 PM Workstation Name: [id number]
[2019-07-22 21:27] LABS: Hematocrit 38.9 % (30.3-42.9); Hemoglobin 12.8 gm/dl (10.1-14.3); Mean Corpuscular HGB Conc 33 % (30-34); Mean Corpuscular Volume 86 fl (79-97); Platelet Count 219 K/mm3 (140-440); Red Blood Count 4.52 M/mm3 (3.65-5.03); Red Cell Distribution Width 17.9 % (13.2-15.2)
[2019-07-22 21:35] LABS: Partial Thromboplastin Time 25.2 Sec. (24.2-36.6)
[2019-07-22 21:44] LABS: Alanine Aminotransferase 13 units/L (7-56); Albumin 4.1 g/dL (3.9-5); BUN/Creatinine Ratio 17; Blood Urea Nitrogen 10 mg/dL (7-17); Calcium 9.7 mg/dL (8.4-10.2); Hemolysis Index 70
[2019-07-22] MEDS ORDERED: METOCLOPRAMIDE 10 MG TAB PO PRN (22:03)
[2019-07-22] MEDS ORDERED: ALBUTEROL 2.5 MG/3 ML NEBU IH PRN (22:03)
[2019-07-22] MEDS ORDERED: ACETAMINOPHEN 325 MG TAB PO PRN (22:03)
[2019-07-22] MEDS ORDERED: FAMOTIDINE 20 MG TAB PO PRN (22:03)
[2019-07-22] MEDS ORDERED: LORazepam 2 MG TAB PO PRN ×2 (22:30)
[2019-07-22] MEDS ORDERED: LORazepam 2 MG/ML VIAL IV PRN (22:30)
[2019-07-22] MEDS ORDERED: chlordiazePOXIDE 25 MG CAP PO PRN ×2 (22:30)
[2019-07-22] MEDS: levETIRAcetam 500 MG TAB PO SCH (22:51)
[2019-07-22 23:16] LABS: Bilirubin,Urine NEG (Negative); Blood,Urine NEG (Negative); Color,Urine Yellow (Yellow); Hyaline Casts,Urine 4 /LPF; Mucus,Urine FEW /HPF; Protein,Urine <15 mg/dL mg/dL (Negative); Urobilinogen,Urine < 2.0 mg/dL (<2.0)
[2019-07-22 23:23] LABS: Amphetamine Screen,Urine PRESUMPTIVE NEGATIVE; Cannabinoid Screen,Urine PRESUMPTIVE NEGATIVE; Cocaine Screen,Urine PRESUMPTIVE NEGATIVE; Methadone Screen,Urine PRESUMPTIVE NEGATIVE; Opiate Screen,Urine PRESUMPTIVE NEGATIVE
[2019-07-22 23:54] LABS: Benzodiazepines Screen,Urine PRESUMPTIVE POSITIVE
[2019-07-23 00:13] LABS: Bacteria,Urine 1+ /HPF (Negative)
[2019-07-23] MEDS ORDERED: NICOTINE 21 MG/24 HR PATCH TD SCH (10:00)
[2019-07-23] MEDS: levETIRAcetam 500 MG TAB PO SCH (11:00)
[2019-07-23 13:08] VITALS: BP 101/65
== END 2019-07-23 14:17 | disposition left against medical advice (07) ==
LOC: ED 18:27
DX: R41.82 Altered mental status, unspecified (principal); I10 Essential (primary) hypertension; F43.10 Post-traumatic stress disorder, unspecified; F17.200 Nicotine dependence, unspecified, uncomplicated
CPT/HCPCS: 36415; 70450; 72125; 80053; 80307; 80320; 81001; 82550; 82962; 83735; 84702; 85027; 85610; 85730; 93005; 93010; G0480

== ENCOUNTER 2019-07-25 20:14 | Observation (INO) | payer BC, OTHER ==
[2019-07-25] MEDS ORDERED: SODIUM CHLORIDE 0.9% 1000 ML 1,000 ML IV ONE ×2 (20:42→23:55)
[2019-07-25 22:20] LABS: Hematocrit 39.5 % (30.3-42.9); Hemoglobin 13.2 gm/dl (10.1-14.3); Mean Corpuscular HGB Conc 34 % (30-34); Mean Corpuscular Volume 85 fl (79-97); Platelet Count 220 K/mm3 (140-440); Red Blood Count 4.64 M/mm3 (3.65-5.03); Red Cell Distribution Width 17.7 % (13.2-15.2)
[2019-07-25] MEDS ORDERED: LORazepam 2 MG/ML VIAL IM ONE (22:34)
--- NOTE | 2019-07-25 22:44 | Cat Scan Report ---
CT of the head without contrast INDICATION / CLINICAL INFORMATION: Fall with head trauma. TECHNIQUE: All CT scans at this location are performed using CT dose reduction for ALARA by means of automated e xposure control. COMPARISON: None available. FINDINGS: The ventricular system is normal in size and configuration. No focal lesion or mass effect is seen. T here is no evidence of intracranial hemorrhage or major vessel occlusion. The calvarium is intact. Th e visualized paranasal sinuses and mastoid air cells are clear. IMPRESSION: No acute abnormality or significant change. Signer Name: Jw Reza MD Signed: 07/25/2019 10:39 PM Workstation Name: [id number]
--- NOTE | 2019-07-25 22:44 | Cat Scan Report ---
CT CERVICAL SPINE WITHOUT CONTRAST INDICATION: Neck pain/injury after fall. COMPARISON: CT cervical spine without contrast from 07/22/2019. TECHNIQUE: Axial, coronal and sagittal CT imaging of the cervical spine without contrast was performe d. All CT scans at this location are performed using CT dose reduction for ALARA by means of automat ed exposure control. FINDINGS: VERTEBRAE:No acute fracture. Normal alignment. DISC SPACES: Mild discogenic degenerative changes are stable. FACET JOINTS:No significant abnormality. CENTRAL CANAL: No significant central canal stenosis is seen. Multilevel lateral neural foraminal akila rowing is unchanged. SOFT TISSUES:No acute abnormality. LUNG APICES: No significant abnormality. ADDITIONAL FINDINGS: None IMPRESSION: 1. No acute abnormality of the cervical spine. 2. Stable mild cervical spondylosis. Signer Name: Yohannes Cole MD Signed: 07/25/2019 10:39 PM Workstation Name: [id number]
[2019-07-25 23:26] LABS: Basophils % (Manual) 0 % (0.0-1.8); Total Cells Counted 100
[2019-07-25 23:27] LABS: Eosinophils % (Manual) 0 % (0.0-4.3); Platelet Estimate Consistent w Auto
--- NOTE | 2019-07-25 23:44 | XRay Report ---
CHEST 1 VIEW 07/25/2019 11:14 PM INDICATION / CLINICAL INFORMATION: Chest pain/injury after fall. COMPARISON: One view of the chest from 06/18/2019. FINDINGS: SUPPORT DEVICES: None. HEART / MEDIASTINUM: No significant abnormality. LUNGS / PLEURA: No significant pulmonary or pleural abnormality. No pneumothorax. ADDITIONAL FINDINGS: No significant additional findings. IMPRESSION: 1. No acute abnormality of the chest. Signer Name: Yohannes Cole MD Signed: 07/25/2019 11:40 PM Workstation Name: [id number]
[2019-07-25] MEDS ORDERED: TETANUS,DIPH,PERTUSS(ACELL) VACCINE 0.5 ML SYRINGE IM ONE (23:55)
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
[2019-07-26] MEDS ORDERED: ONDANSETRON 4 MG/2 ML INJ IV PRN (02:30)
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
[2019-07-26] MEDS: SODIUM CHLORIDE 0.9% 1000 ML 1,000 ML IV SCH ×4 (04:45→23:50)
[2019-07-26 08:26] LABS: Amorphous Crystals,Urine 2+; Bacteria,Urine 4+ /HPF (Negative); Bilirubin,Urine NEG (Negative); Blood,Urine LG (Negative); Color,Urine Amber (Yellow); Mucus,Urine FEW /HPF; RBC,Urine < 1.0 /HPF (0.0-6.0); Urobilinogen,Urine < 2.0 mg/dL (<2.0)
[2019-07-26 08:31] LABS: Amphetamine Screen,Urine PRESUMPTIVE NEGATIVE; Cannabinoid Screen,Urine PRESUMPTIVE NEGATIVE; Cocaine Screen,Urine PRESUMPTIVE NEGATIVE; Methadone Screen,Urine PRESUMPTIVE NEGATIVE
--- NOTE | 2019-07-26 08:49 | Event Note ---
Date: 07/26/19 Patient with rhabdomyolysis, fall at home. I have seen and examined her. Continue current management.
[2019-07-26 08:51] LABS: Benzodiazepines Screen,Urine PRESUMPTIVE POSITIVE; Opiate Screen,Urine PRESUMPTIVE POSITIVE
[2019-07-26] MEDS: MORPHINE 2 MG/1 ML INJ IV PRN ×4 (10:10→21:24)
[2019-07-26] MEDS: ACETAMINOPHEN 325 MG TAB PO PRN (11:17)
--- NOTE | 2019-07-26 12:04 | XRay Report ---
LEFT HIP, 2 VIEWS INDICATION: pain left thigh/knee. COMPARISON: None. IMPRESSION: No acute osseous or soft tissue abnormality. No significant DJD. LEFT KNEE, 2 VIEWS INDICATION: pain left thigh/knee. COMPARISON: None. IMPRESSION: No acute osseous abnormality or joint pathology. A small left knee effusion is identifi ed on the lateral image. Signer Name: Nelson Acharya Jr, MD Signed: 07/26/2019 11:59 AM Workstation Name: [id number]
[2019-07-26] MEDS: HEPARIN 5,000 UNIT/1 ML VIAL SUB-Q SCH ×2 (13:28→21:24)
[2019-07-26] MEDS ORDERED: LORazepam 2 MG/ML VIAL IV PRN ×2 (22:36)
[2019-07-27] MEDS: ACETAMINOPHEN 325 MG TAB PO PRN ×2 (00:07→17:01)
[2019-07-27] MEDS ORDERED: KETOROLAC 30 MG/1 ML INJ IV ONE (01:26)
[2019-07-27] MEDS: SODIUM CHLORIDE 0.9% 1000 ML 1,000 ML IV SCH ×2 (05:29→11:47)
[2019-07-27] MEDS: MORPHINE 2 MG/1 ML INJ IV PRN ×3 (05:30→13:41)
[2019-07-27] MEDS: HEPARIN 5,000 UNIT/1 ML VIAL SUB-Q SCH ×2 (05:31→14:11)
[2019-07-27 07:15] LABS: Basophils % (Auto) 0.6 % (0.0-1.8); Eosinophils # (Auto) 0.3 K/mm3 (0.0-0.4); Eosinophils % (Auto) 4.7 % (0.0-4.3); Hematocrit 37.2 % (30.3-42.9); Hemoglobin 12.2 gm/dl (10.1-14.3); Lymphocytes # (Auto) 1.5 K/mm3 (1.2-5.4); Lymphocytes % (Auto) 23.4 % (13.4-35.0); Mean Corpuscular HGB Conc 33 % (30-34); Mean Corpuscular Volume 86 fl (79-97); Monocytes # (Auto) 0.7 K/mm3 (0.0-0.8); Monocytes % (Auto) 11.5 % (0.0-7.3); Platelet Count 218 K/mm3 (140-440); Red Blood Count 4.33 M/mm3 (3.65-5.03); Red Cell Distribution Width 17.8 % (13.2-15.2)
[2019-07-27 07:21] LABS: BUN/Creatinine Ratio 16; Blood Urea Nitrogen 11 mg/dL (7-17); Calcium 8.2 mg/dL (8.4-10.2); Hemolysis Index 7
[2019-07-27 07:24] LABS: INR 1.03 (0.87-1.13)
[2019-07-27 07:25] LABS: Partial Thromboplastin Time 24.2 Sec. (24.2-36.6)
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
[2019-07-27 17:32] VITALS: BP 138/94
== END 2019-07-27 18:17 | disposition home health service (06) ==
LOC: ED 20:14 → 3A 07-26 00:54
PROVIDERS: ADMIT Internal Medicine Geriatric Medicine; ATTEND Internal Medicine
DX: T79.6XXA Traumatic ischemia of muscle, initial encounter (principal); F10.10 Alcohol abuse, uncomplicated; W19.XXXA Unspecified fall, initial encounter; I10 Essential (primary) hypertension; R56.9 Unspecified convulsions; F17.200 Nicotine dependence, unspecified, uncomplicated; Z23 Encounter for immunization; Z91.81 History of falling; Y93.9 Activity, unspecified; Y92.89 Other specified places as the place of occurrence of the external cause; Y99.9 Unspecified external cause status
CPT/HCPCS: 36415; 70450; 71045; 72125; 73502; 73560; 80048; 80307; 81001; 82550; 83735; 84100; 84703; 85007; 85025; 85610; 85730; 90471; 90715; 96372; 96374; 96375; 96376; 97162; 99284; G0378; J1644; J1885; J2060; J2270; J2405; J7030; 80320; G0480

== ENCOUNTER 2019-10-11 15:02 | Emergency (ER) | payer SELFPAY ==
[2019-10-11 15:27] VITALS: BP 137/74
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
[2019-10-11 16:22] LABS: HCG Qualitative,Urine Negative (Negative)
[2019-10-11 16:26] LABS: Bacteria,Urine 1+ /HPF (Negative); Bilirubin,Urine NEG (Negative); Blood,Urine SM (Negative); Color,Urine Colorless (Yellow); Hyaline Casts,Urine 1 /LPF; Protein,Urine <15 mg/dL mg/dL (Negative); Urobilinogen,Urine < 2.0 mg/dL (<2.0)
[2019-10-11 16:31] LABS: Basophils # (Auto) 0.1 K/mm3 (0.0-0.1); Basophils % (Auto) 0.8 % (0.0-1.8); Eosinophils # (Auto) 0.2 K/mm3 (0.0-0.4); Eosinophils % (Auto) 2.2 % (0.0-4.3); Hematocrit 41.3 % (30.3-42.9); Hemoglobin 13.5 gm/dl (10.1-14.3); Lymphocytes % (Auto) 19.8 % (13.4-35.0); Mean Corpuscular HGB Conc 33 % (30-34); Mean Corpuscular Volume 85 fl (79-97); Monocytes # (Auto) 0.8 K/mm3 (0.0-0.8); Monocytes % (Auto) 8.1 % (0.0-7.3); Platelet Count 278 K/mm3 (140-440); Red Blood Count 4.89 M/mm3 (3.65-5.03); Red Cell Distribution Width 16.6 % (13.2-15.2)
[2019-10-11 16:31] LABS: Amphetamine Screen,Urine PRESUMPTIVE NEGATIVE; Cannabinoid Screen,Urine PRESUMPTIVE NEGATIVE; Cocaine Screen,Urine PRESUMPTIVE NEGATIVE; Methadone Screen,Urine PRESUMPTIVE NEGATIVE; Opiate Screen,Urine PRESUMPTIVE NEGATIVE
[2019-10-11 16:38] LABS: BUN/Creatinine Ratio 14; Blood Urea Nitrogen 10 mg/dL (7-17); Calcium 9.8 mg/dL (8.4-10.2); Hemolysis Index 131
[2019-10-11 16:49] LABS: Benzodiazepines Screen,Urine PRESUMPTIVE POSITIVE
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
== END 2019-10-11 20:14 | disposition home or self-care (01) ==
LOC: EEVIPCON 15:02 → ED 15:02
DX: F10.129 Alcohol abuse with intoxication, unspecified (principal); I10 Essential (primary) hypertension; M19.90 Unspecified osteoarthritis, unspecified site; G40.909 Epilepsy, unspecified, not intractable, without status epilepticus; F43.10 Post-traumatic stress disorder, unspecified; Z79.899 Other long term (current) drug therapy; Z88.2 Allergy status to sulfonamides
CPT/HCPCS: 36415; 80048; 80307; 80320; 81001; 81025; 85025; G0480

== ENCOUNTER 2019-10-12 15:32 | Emergency (ER) | payer OTHER ==
[2019-10-12] MEDS ORDERED: SODIUM CHLORIDE 0.9% 1000 ML 1,000 ML IV ONE (15:44)
--- NOTE | 2019-10-12 15:49 | Emergency Department Report ---
HPI - HPI HPI: 49-year-old female presents to the emergency department via EMS from home after the patient attempted to kill herself by overdosing on medication. The patient's ex-, whom she lives with, followed her back to 1 of the bathrooms where she was found taking an entire bottle of 300 mg gabapentin. The patient had been drinking alcohol today as well. The patient says that she also took some type of medication that starts with a "P" that she takes for PTSD. The patient was here yesterday for similar symptoms and was made a 2013 at that time but it was rescinded and the patient was brought back home. Currently the patient is sedated and a poor historian but does answer some questions. <FELIX GRESHAM - Last Filed: 10/12/19 22:03> <DILIP HOOKER - Last Filed: 10/14/19 12:17> - General Time Seen by Provider: 10/12/19 15:35 ED Past Medical Hx - Past Medical History Hx Hypertension: Yes Hx Congestive Heart Failure: No Hx Diabetes: No Hx Deep Vein Thrombosis: No Hx Pulmonary Embolism: No Hx GERD: No Hx Arthritis: Yes Hx Headaches / Migraines: No Hx Seizures: Yes Hx Psychiatric Treatment: Yes (PTSD) Hx Asthma: No Hx COPD: No Hx Tuberculosis: No Hx HIV: No Additional medical history: Alcoholism, Chronic Back Pain - Surgical History Hx Open Heart Surgery: No Hx Pacemaker: No Hx Internal Defibrillator: No Hx Cholecystectomy: No Hx Appendectomy: No Hx Breast Surgery: No Additional Surgical History: back surgery (T3-L5) - Social History Smoking Status: Current Every Day Smoker Substance Use Type: Alcohol <FELIX GRESHAM - Last Filed: 10/12/19 22:03> <DILIP HOOKER - Last Filed: 10/14/19 12:17> - Medications Home Medications: Home Medications Medication Instructions Recorded Confirmed Last Taken Type Gabapentin 400 mg PO TID 06/19/19 10/13/19 10/12/19 History Escitalopram [Lexapro] 5 mg PO QDAY tablet 08/15/19 10/13/19 10/13/19 Rx Oxycodone HCl/Acetaminophen 1 each PO Q6HR PRN #20 08/15/19 10/13/19 10/12/19 Rx [Percocet 10/325 mg] traZODone [Desyrel] 50 mg PO QHS #30 tablet 08/15/19 10/13/19 10/12/19 Rx ED Review of Systems ROS: Stated complaint: SUICIDE ATTEMPT/OD Other details as noted in HPI Comment: Unobtainable due to pts medical conditions <FELIX GRESHAM - Last Filed: 10/12/19 22:03> ROS: Stated complaint: SUICIDE ATTEMPT/OD Other details as noted in HPI <DILIP HOOKER - Last Filed: 10/14/19 12:17> Physical Exam - Physical Exam Physical Exam: GENERAL: The patient is well-developed well-nourished. HENT: Normocephalic. Atraumatic. Patient has moist mucous membranes. EYES: Pupils equal reactive to light bilaterally. NECK: Supple. Trachea is midline. CHEST/LUNGS: Clear to auscultation. There is no respiratory distress noted. HEART/CARDIOVASCULAR: Regular. There is no tachycardia. There is no murmur. ABDOMEN: Abdomen is soft, nontender. Patient has normal bowel sounds. There is no abdominal distention. SKIN: Skin is warm and dry. NEURO: Patient is very sleepy but is arousable. Patient will fall back asleep if not continuously stimulated. Withdraws from painful stimuli. Positive gag reflex. MUSCULOSKELETAL: There is no tenderness or obvious deformity. There is no evidence of acute injury. <FELIX GRESHAM S - Last Filed: 10/12/19 22:03> - Physical Exam Vital Signs: Vital Signs 10/12/19 10/12/19 10/12/19 15:55 16:03 16:15 Temperature 97.6 F Pulse Rate 81 81 Respiratory 21 19 Rate Blood Pressure 115/75 115/75 Blood Pressure 118/71 [Left] O2 Sat by Pulse 98 96 96 Oximetry 10/12/19 10/12/19 10/12/19 16:30 16:42 16:45 Temperature 97.6 F Pulse Rate 84 81 81 Respiratory 22 21 21 Rate Blood Pressure 103/70 118/76 108/70 Blood Pressure 103/70 [Left] O2 Sat by Pulse 97 98 97 Oximetry 10/12/19 10/12/19 10/12/19 17:00 17:05 17:15 Temperature Pulse Rate 80 80 Respiratory 22 21 21 Rate Blood Pressure 104/66 101/69 Blood Pressure [Left] O2 Sat by Pulse 97 98 97 Oximetry 10/12/19 10/12/19 10/12/19 17:19 17:30 17:45 Temperature Pulse Rate 80 80 81 Respiratory 22 19 18 Rate Blood Pressure 110/76 101/71 Blood Pressure 104/65 [Left] O2 Sat by Pulse 97 97 98 Oximetry 10/12/19 10/12/19 10/12/19 18:00 18:15 18:30 Temperature Pulse Rate 82 81 83 Respiratory 21 21 22 Rate Blood Pressure 100/64 108/69 100/62 Blood Pressure [Left] O2 Sat by Pulse 99 98 Oximetry 10/12/19 10/12/19 10/12/19 18:45 18:54 19:00 Temperature Pulse Rate 83 83 82 Respiratory 22 21 22 Rate Blood Pressure 95/65 99/68 Blood Pressure 96/65 [Left] O2 Sat by Pulse 98 Oximetry 10/12/19 10/12/19 10/12/19 19:15 19:30 19:45 Temperature Pulse Rate 76 81 79 Respiratory 16 20 20 Rate Blood Pressure 112/75 105/78 108/67 Blood Pressure [Left] O2 Sat by Pulse 100 Oximetry 10/12/19 10/12/19 10/12/19 20:00 20:15 20:30 Temperature Pulse Rate 81 78 79 Respiratory 20 19 19 Rate Blood Pressure 102/70 109/68 104/62 Blood Pressure [Left] O2 Sat by Pulse Oximetry 10/12/19 10/12/19 10/12/19 20:45 21:00 21:15 Temperature Pulse Rate 82 79 78 Respiratory 21 18 16 Rate Blood Pressure 103/67 108/73 109/70 Blood Pressure [Left] O2 Sat by Pulse 98 98 Oximetry 10/12/19 10/12/19 10/12/19 21:30 22:00 23:00 Temperature Pulse Rate 83 87 85 Respiratory 22 23 17 Rate Blood Pressure 118/72 104/67 105/71 Blood Pressure [Left] O2 Sat by Pulse 94 Oximetry 10/12/19 10/13/19 10/13/19 23:17 00:00 01:00 Temperature Pulse Rate 85 85 85 Respiratory 21 20 21 Rate Blood Pressure 105/71 116/69 117/71 Blood Pressure [Left] O2 Sat by Pulse 96 98 Oximetry 10/13/19 10/13/19 10/13/19 02:00 03:01 17:00 Temperature 98.2 F Pulse Rate 85 86 Respiratory 24 23 Rate Blood Pressure 116/71 116/71 Blood Pressure [Left] O2 Sat by Pulse 95 Oximetry 10/13/19 10/13/19 10/14/19 19:57 20:30 01:48 Temperature 98.3 F 98.3 F 98.0 F Pulse Rate 88 88 92 H Respiratory 16 16 18 Rate Blood Pressure Blood Pressure 134/55 134/55 114/66 [Left] O2 Sat by Pulse 98 98 95 Oximetry 10/14/19 10/14/19 10/14/19 02:48 07:00 11:00 Temperature 98.2 F Pulse Rate 80 80 Respiratory 18 18 Rate Blood Pressure 131/80 Blood Pressure 131/80 [Left] O2 Sat by Pulse 100 97 Oximetry <DILIP HOOKER - Last Filed: 10/14/19 12:17> ED Course - Consultations Consultation #1: I consulted with the poison control regarding the patient's overdose attempt and ingestion. Regarding the gabapentin, they say that it is very well tolerated even at large doses. However in conjunction with alcohol it can increase respiratory depression. Since there is a unknown medication ingestion as well, they recommend monitoring for about 12 hours in total. They agree with the plan for labs, EKG, cardiac monitoring and are available for any further consultation. 10/12/19 16:28 <FELIX GRESHAM - Last Filed: 10/12/19 22:03> Vital Signs 10/12/19 10/12/19 10/12/19 15:55 16:03 16:15 Temperature 97.6 F Pulse Rate 81 81 Respiratory 21 19 Rate Blood Pressure 115/75 115/75 Blood Pressure 118/71 [Left] O2 Sat by Pulse 98 96 96 Oximetry 10/12/19 10/12/19 10/12/19 16:30 16:42 16:45 Temperature 97.6 F Pulse Rate 84 81 81 Respiratory 22 21 21 Rate Blood Pressure 103/70 118/76 108/70 Blood Pressure 103/70 [Left] O2 Sat by Pulse 97 98 97 Oximetry 10/12/19 10/12/19 10/12/19 17:00 17:05 17:15 Temperature Pulse Rate 80 80 Respiratory 22 21 21 Rate Blood Pressure 104/66 101/69 Blood Pressure [Left] O2 Sat by Pulse 97 98 97 Oximetry 10/12/19 10/12/19 10/12/19 17:19 17:30 17:45 Temperature Pulse Rate 80 80 81 Respiratory 22 19 18 Rate Blood Pressure 110/76 101/71 Blood Pressure 104/65 [Left] O2 Sat by Pulse 97 97 98 Oximetry 10/12/19 10/12/19 10/12/19 18:00 18:15 18:30 Temperature Pulse Rate 82 81 83 Respiratory 21 21 22 Rate Blood Pressure 100/64 108/69 100/62 Blood Pressure [Left] O2 Sat by Pulse 99 98 Oximetry 10/12/19 10/12/19 10/12/19 18:45 18:54 19:00 Temperature Pulse Rate 83 83 82 Respiratory 22 21 22 Rate Blood Pressure 95/65 99/68 Blood Pressure 96/65 [Left] O2 Sat by Pulse 98 Oximetry 10/12/19 10/12/19 10/12/19 19:15 19:30 19:45 Temperature Pulse Rate 76 81 79 Respiratory 16 20 20 Rate Blood Pressure 112/75 105/78 108/67 Blood Pressure [Left] O2 Sat by Pulse 100 Oximetry 10/12/19 10/12/19 10/12/19 20:00 20:15 20:30 Temperature Pulse Rate 81 78 79 Respiratory 20 19 19 Rate Blood Pressure 102/70 109/68 104/62 Blood Pressure [Left] O2 Sat by Pulse Oximetry 10/12/19 10/12/19 10/12/19 20:45 21:00 21:15 Temperature Pulse Rate 82 79 78 Respiratory 21 18 16 Rate Blood Pressure 103/67 108/73 109/70 Blood Pressure [Left] O2 Sat by Pulse 98 98 Oximetry 10/12/19 10/12/19 10/12/19 21:30 22:00 23:00 Temperature Pulse Rate 83 87 85 Respiratory 22 23 17 Rate Blood Pressure 118/72 104/67 105/71 Blood Pressure [Left] O2 Sat by Pulse 94 Oximetry 10/12/19 10/13/19 10/13/19 23:17 00:00 01:00 Temperature Pulse Rate 85 85 85 Respiratory 21 20 21 Rate Blood Pressure 105/71 116/69 117/71 Blood Pressure [Left] O2 Sat by Pulse 96 98 Oximetry 10/13/19 10/13/19 10/13/19 02:00 03:01 17:00 Temperature 98.2 F Pulse Rate 85 86 Respiratory 24 23 Rate Blood Pressure 116/71 116/71 Blood Pressure [Left] O2 Sat by Pulse 95 Oximetry 10/13/19 10/13/19 10/14/19 19:57 20:30 01:48 Temperature 98.3 F 98.3 F 98.0 F Pulse Rate 88 88 92 H Respiratory 16 16 18 Rate Blood Pressure Blood Pressure 134/55 134/55 114/66 [Left] O2 Sat by Pulse 98 98 95 Oximetry 10/14/19 10/14/19 10/14/19 02:48 07:00 11:00 Temperature 98.2 F Pulse Rate 80 80 Respiratory 18 18 Rate Blood Pressure 131/80 Blood Pressure 131/80 [Left] O2 Sat by Pulse 100 97 Oximetry - Reevaluation(s) Reevaluation #1: 10/14/19 12:16 Patient accepted to [facility] <DILIP HOOKER - Last Filed: 10/14/19 12:17> - EJ/Peripheral Line Arm R Time Out Performed: Yes Indications: nurses unable to establis Skin Cleansed in Sterile Fashion: Yes Size: 22 Dressing Placed: Tegaderm, tape Patient Tolerated Procedure: well <FELIX GRESHAM - Last Filed: 10/12/19 22:03> ED Medical Decision Making - Lab Data Result diagrams: 10/12/19 15:52 10/12/19 15:52 - EKG Data -: EKG Interpreted by Me EKG shows normal: sinus rhythm, axis, intervals, QRS complexes, ST-T waves Rate: normal - EKG Data When compared to previous EKG there are: previous EKG unavailable Interpretation: normal EKG - Medical Decision Making This patient presents to the emergency department after a suicide attempt by overdose/ingestion. The patient took a unknown, but allegedly large amount, of gabapentin. She also allegedly took another unknown medication and mixed both of these with alcohol. Blood alcohol level came back at 0.18. Urine drug screen is positive for benzodiazepines. Poison control was contacted and recommended supportive care. However, given that we do not know the second possible ingested medication, they recommend a 12-hour monitoring before the patient could be considered cleared. The rest of the patient's labs are unremarkable including CBC, metabolic panel and urinalysis. The patient has been given IV fluid including banana bag. The patient will have a CT scan of the head without contrast but her sedation and altered mental status is most likely secondary to her drug overdose/ingestion. The patient will be evaluated by the psychiatric team in the morning, when the patient will most likely be medically cleared. <FELIX GRESHAM - Last Filed: 10/12/19 22:03> - Lab Data Result diagrams: 10/12/19 15:52 10/12/19 15:52 <DILIP HOOKER - Last Filed: 10/14/19 12:17> Critical Care Time: No Critical care attestation.: If time is entered above; I have spent that time in minutes in the direct care of this critically ill patient, excluding procedure time. <FELIX GRESHAM - Last Filed: 10/12/19 22:03> Critical care attestation.: If time is entered above; I have spent that time in minutes in the direct care of this critically ill patient, excluding procedure time. <DILIP HOOKER - Last Filed: 10/14/19 12:17> ED Disposition Is pt being admited?: No Time of Disposition: 22:07 <FELIX GRESHAM - Last Filed: 10/12/19 22:03> Is pt being admited?: No Does the pt Need Aspirin: No Time of Disposition: 12:17 <DILIP HOOKER - Last Filed: 10/14/19 12:17> Clinical Impression: Suicidal ideations, Alcohol abuse Gabapentin overdose Qualifiers: Encounter type: initial encounter Injury intent: intentional self-harm Qualified Code(s): T42.6X2A - Poisoning by other antiepileptic and sedative- hypnotic drugs, intentional self-harm, initial encounter Disposition: DC/[facility] HOS[facility]/PSY UNIT Condition: Stable Referrals: PRIMARY CARE,MD [Primary Care Provider] - 3-5 Days
[2019-10-12 16:08] LABS: Basophils # (Auto) 0.1 K/mm3 (0.0-0.1); Basophils % (Auto) 0.7 % (0.0-1.8); Eosinophils # (Auto) 0.3 K/mm3 (0.0-0.4); Hematocrit 39.7 % (30.3-42.9); Lymphocytes # (Auto) 2.6 K/mm3 (1.2-5.4); Lymphocytes % (Auto) 29.9 % (13.4-35.0); Mean Corpuscular HGB Conc 33 % (30-34); Mean Corpuscular Volume 84 fl (79-97); Monocytes # (Auto) 0.8 K/mm3 (0.0-0.8); Monocytes % (Auto) 9.7 % (0.0-7.3); Platelet Count 281 K/mm3 (140-440); Red Blood Count 4.72 M/mm3 (3.65-5.03); Red Cell Distribution Width 16.4 % (13.2-15.2)
[2019-10-12 16:30] LABS: Alanine Aminotransferase 18 units/L (7-56); Albumin 4.3 g/dL (3.9-5); BUN/Creatinine Ratio 11; Blood Urea Nitrogen 8 mg/dL (7-17); Calcium 9.6 mg/dL (8.4-10.2); Hemolysis Index 24
[2019-10-12] MEDS ORDERED: THIAMINE 100 MG, FOLIC ACID 1 MG, MULTIPLE VITAMIN INJ, ADULT 10 ML in SODIUM CHLORIDE ... IV ONE (17:00)
[2019-10-12 18:19] LABS: Bacteria,Urine 1+ /HPF (Negative); Bilirubin,Urine NEG (Negative); Blood,Urine MOD (Negative); Color,Urine Straw (Yellow); Protein,Urine <15 mg/dL mg/dL (Negative); RBC,Urine < 1.0 /HPF (0.0-6.0); Urobilinogen,Urine < 2.0 mg/dL (<2.0)
[2019-10-12 18:24] LABS: Amphetamine Screen,Urine PRESUMPTIVE NEGATIVE; Cannabinoid Screen,Urine PRESUMPTIVE NEGATIVE; Cocaine Screen,Urine PRESUMPTIVE NEGATIVE; Methadone Screen,Urine PRESUMPTIVE NEGATIVE; Opiate Screen,Urine PRESUMPTIVE NEGATIVE
[2019-10-12 18:39] LABS: Benzodiazepines Screen,Urine PRESUMPTIVE POSITIVE
--- NOTE | 2019-10-12 22:48 | Cat Scan Report ---
CT HEAD WITHOUT CONTRAST INDICATION: AMS. TECHNIQUE: All CT scans at this location are performed using CT dose reduction for ALARA by means of automated e xposure control. COMPARISON: CT 07/25/2019 FINDINGS: HEMORRHAGE: None. EXTRA-AXIAL SPACES: Normal in size and morphology for the patient's age. VENTRICULAR SYSTEM: Normal in size and morphology for the patient's age. BRAIN PARENCHYMA: No acute findings. MIDLINE SHIFT OR HERNIATION: None. ORBITS: Normal as visualized. SOFT TISSUES OF HEAD: Normal. CALVARIUM: Normal. VISUALIZED PARANASAL SINUSES AND MASTOID AIR CELLS: Clear. ADDITIONAL FINDINGS: None. IMPRESSION: 1. No acute intracranial abnormality. Signer Name: Daryl Lopez MD Signed: 10/12/2019 10:44 PM Workstation Name: [id number]
[2019-10-13] MEDS ORDERED: LORazepam 2 MG/ML VIAL ONE (03:57)
[2019-10-13] MEDS ORDERED: LORazepam 2 MG/ML VIAL IV ONE (04:02)
[2019-10-13] MEDS ORDERED: IBUPROFEN 800 MG TAB PO ONE (10:08)
[2019-10-13] MEDS ORDERED: NICOTINE 21 MG/24 HR PATCH TD ONE (10:08)
--- NOTE | 2019-10-13 11:14 | Consultation ---
History of Present Illness - Reason for Consult Consult date: 10/13/19 Reason for consult: psychiatric assessment - History of Present Psychiatric Illness Ms. Guerrero is a 43-year-old female, patient was noted sitting on the side of the bed oriented x3, able to make her needs known, maintain eye contact dressed appropriately for the occasion. The patient reports that she has a history of PTSD. The patient reported that she is here in the hospital she stat es, "my and I were having an argument he called the police because he thought I took some pills I did not take all the pills he said I only took 4 pills". When asked why the patient stated, he was messing with me and he does these things to get me out of the house". The patient denies suicidal or homicidal ideations the patient stated, "I would never try to hurt myself I do drink daily but I am not suicidal". The patient denies visual or auditory hallucinations. The patient reports that she is depressed and not sleeping well she does report eating fine. When asked about getting help for alcohol the patient stated, "I do not need any help for drinking I will never stop drinking i love drinking". per chart patient patient was previously here for suicidal attempt was sent home and her noted that she took more pills. The patient reported that she just takes prazosin 1 mg for nightmares, trazodone to sleep and Lexapro for depression. PAST PSYCHIATRIC HISTORY: Diagnoses: PTSD Suicide attempts or Self-harm behavior: Denies Prior psychiatric hospitalizations: Denies Substance Abuse history: Alcoholic Previous psychiatric medications tried: Prazosin [facility] MEDICAL HISTORY: Back pain Family Psychiatric History None reported or documented SOCIAL HISTORY Marital Status: Living Arrangements: Employment Status: Unemployed Access to guns/weapons: Education: [employer] History of Abuse: Denies Legal History: Denies ROS: Constitutional: Negative for weight loss ENT: Negative for stridor Respiratory: Negative for cough or hemoptysis All other systems reviewed and are negative MENTAL STATUS General Appearance and Behavior: age appropriate, good eye contact, cooperative with questioning and polite Cooperation: Cooperative Psychomotor Behavior: within normal limits Mood: OK Affect and affective range: Congruent with stated mood Thought Process: Fluent/Logical and Goal-directed Thought Content: Within reality Speech: Normal volume and Regular rate and rhythm Intellectual Functioning Average Suicidal Ideation: Denies SI Homicidal Ideation: Denies HI Impulse Control: intact Insight and Judgment: normal insight and judgment Memory: Normal Attention: Normal Orientation: alert and oriented RECOMMENDATIONS MEDICATIONS: Start Lexapro 5 mg p.o. daily Start trazodone 50 mg p.o. nightly Start prazosin 1 mg p.o. every 12 hours Risks, benefits and alternatives of medications discussed with the patient, questions answered and consent obtained from patient. PSYCHOTHERAPY: Supportive psychotherapy provided MEDICAL: Per primary team DELIRIUM PRECAUTIONS: Please re-orient patient frequently, keep lights on during the day, and minimize benzodiazepines and opiates as these medications could worsen patient's confusion. TECHNOLOGY RECRUITER: DISPOSITION: indication for acute inpatient psychiatric hospitalization at this time, si attempt x 2 LEGAL STATUS: 1013 FOLLOW-UP: Will follow Medications and Allergies Allergies Allergy/AdvReac Type Severity Reaction Status Date / Time Sulfa (Sulfonamide Allergy Rash Verified 01/15/18 11:52 Antibiotics) Home Medications Medication Instructions Recorded Confirmed Last Taken Type Gabapentin 400 mg PO TID 06/19/19 10/13/19 10/12/19 History Escitalopram [Lexapro] 5 mg PO QDAY tablet 08/15/19 10/13/19 10/13/19 Rx Oxycodone HCl/Acetaminophen 1 each PO Q6HR PRN #20 08/15/19 10/13/19 10/12/19 Rx [Percocet 10/325 mg] traZODone [Desyrel] 50 mg PO QHS #30 tablet 08/15/19 10/13/19 10/12/19 Rx Mental Status Exam - Vital signs Last Vital Signs Temp 97.6 F 10/12/19 16:42 Pulse 86 10/13/19 03:01 Resp 23 10/13/19 03:01 BP 116/71 10/13/19 03:01 Pulse Ox 95 10/13/19 03:01 Results Result Diagrams: 10/12/19 15:52 10/12/19 15:52 Abnormal lab results 10/12/19 10/12/19 10/12/19 Range/Units 15:52 15:52 15:52 RDW 16.4 H (13.2-15.2) % [place] % (Auto) 9.7 H (0.0-7.3) % Potassium 3.5 L D (3.6-5.0) mmol/L Carbon Dioxide 20 L (22-30) mmol/L Salicylates < 0.3 L (2.8-20.0) mg/dL Acetaminophen (10.0-30.0) ug/mL Plasma/Serum Alcohol (0-0.07) % 10/12/19 10/12/19 Range/Units 15:52 15:52 RDW (13.2-15.2) % [place] % (Auto) (0.0-7.3) % Potassium (3.6-5.0) mmol/L Carbon Dioxide (22-30) mmol/L Salicylates (2.8-20.0) mg/dL Acetaminophen < 5.0 L (10.0-30.0) ug/mL Plasma/Serum Alcohol 0.18 H (0-0.07) % All other labs normal.
[2019-10-13] MEDS ORDERED: LORazepam 2 MG/ML VIAL IV PRN ×2 (11:55)
[2019-10-13] MEDS: LORazepam 2 MG/ML VIAL IV PRN ×2 (12:33→17:09)
[2019-10-13] MEDS ORDERED: traZODone 50 MG TAB PO SCH (22:00)
[2019-10-14] MEDS: PRAZOSIN 1 MG CAP PO SCH ×2 (03:09→11:00)
[2019-10-14] MEDS ORDERED: IBUPROFEN 600 MG TAB PO ONE ×2 (09:07→09:09)
[2019-10-14] MEDS ORDERED: ESCITALOPRAM 10 MG TAB PO SCH (10:00)
[2019-10-14 13:38] VITALS: BP 144/86
== END 2019-10-14 15:00 ==
LOC: EEVIPCON 15:32 → ED 15:32
DX: R45.851 Suicidal ideations (principal); F10.10 Alcohol abuse, uncomplicated; I10 Essential (primary) hypertension; M19.90 Unspecified osteoarthritis, unspecified site; F17.200 Nicotine dependence, unspecified, uncomplicated; Z98.890 Other specified postprocedural states; Z88.2 Allergy status to sulfonamides
CPT/HCPCS: 36415; 36556; 70450; 80053; 80307; 81001; 84703; 85025; 93005; 93010; 96365; 96366; 96375; 99285; J2060; J3411; J7030; 80320; G0480